=== PATIENT | female | born 1935 | race Caucasian/White ===

== ENCOUNTER → 2016-05-28 | Outpatient (CLI) | payer OTHER ==
[~2016-05-28] MED LIST: ATEN25TA PO; ATOR40TA PO; METF500T PO; MYRB25TA PO; PAXI20TA3 PO; VAGI10TA VA
--- NOTE | 2016-05-28 11:41 | REP ---
CHEST, TWO VIEWS: HISTORY: Dyspnea. COMPARISON: 05/18/2015. Linear density is present in the left lower lobe consistent with scar. The right lung is clear. The heart is normal in size. The pulmonary vasculature is normal in appearance. Degenerative change is present in the thoracic spine. IMPRESSION: Left lower lobe scar. Signed by Aaron Damon MD 05/28/2016 11:44 A
== END ==
LOC: M LRY 10:58 → M WUC 10:58
PROVIDERS: ATTEND Internal Medicine
DX: J98.4 Other disorders of lung (principal); R06.00 Dyspnea, unspecified

== ENCOUNTER 2017-05-09 14:19 | Emergency (ER) | payer OTHER ==
[2017-05-09 15:02] LABS: BASO # 0.1 10^3/uL (0.0-0.2); EOS # 0.4 10^3/uL (0.0-0.50); EOS % 5.7 % (0.0-3.0); HEMATOCRIT 39.9 % (36.0-47.0); HEMOGLOBIN 13.1 g/dl (12.0-16.0); IMMATURE GRANULOCYTE % 0.6 % (0-0); LYMPH # 1.6 10^3/uL (1.5-4.5); LYMPH % 21.8 % (24.0-44.0); MEAN CORPUSCULAR HEMOGLOBIN 32.5 pg (27.0-33.0); MEAN CORPUSCULAR HGB CONC 32.8 g/dl (32.0-36.5); MONO # 0.6 10^3/uL (0.0-0.8); NEUTROPHILS # 4.5 10^3/uL (1.8-7.7); NEUTROPHILS % 62.9 % (36.0-66.0); PLATELET COUNT, AUTOMATED 247 10^3/uL (150-450); RED BLOOD COUNT 4.03 10^6/uL (4.00-5.40); RED CELL DISTRIBUTION WIDTH 13.5 % (11.5-14.5); WHITE BLOOD COUNT 7.2 10^3/uL (4.0-10.0)
[2017-05-09 15:35] LABS: INFLUENZA A AMPLIFICATION NEGATIVE (NEGATIVE); INFLUENZA B AMPLIFICATION NEGATIVE (NEGATIVE)
[2017-05-09 15:42] LABS: ALBUMIN 3.6 GM/DL (3.2-5.2); ALBUMIN/GLOBULIN RATIO 0.97 (1.00-1.93); ALKALINE PHOSPHATASE 60 U/L (45-117); ALT/SGPT 25 U/L (12-78); ANION GAP 9 MEQ/L (8-16); AST/SGOT 17 U/L (7-37); BILIRUBIN,DIRECT 0.1 MG/DL (0.0-0.2); BILIRUBIN,TOTAL 0.5 MG/DL (0.2-1.0); BLOOD UREA NITROGEN 13 MG/DL (7-18); CALCIUM LEVEL 8.6 MG/DL (8.8-10.2); CARBON DIOXIDE LEVEL 25 MEQ/L (21-32); CHLORIDE LEVEL 104 MEQ/L (98-107); CPK CREATINE PHOSPHOKINASE 66 U/L (26-192); CREATININE FOR GFR 0.81 MG/DL (0.55-1.02); FREE T4 0.88 NG/DL (0.76-1.46); GLOMERULAR FILTRATION RATE > 60.0 (>32); GLUCOSE, FASTING 153 MG/DL (70-100); POTASSIUM SERUM 4.5 MEQ/L (3.5-5.1); SODIUM LEVEL 138 MEQ/L (136-145); TOTAL PROTEIN 7.3 GM/DL (6.4-8.2); TROPONIN I < 0.02 NG/ML (< 0.10)
[2017-05-09 15:47] LABS: INR 1.03; PROTHROMBIN TIME 13.6 SECONDS (12.4-14.5)
[2017-05-09 15:48] LABS: CK-MB VALUE MASS 1.9 NG/ML (0.0-3.6); MB/CK RELATIVE INDEX 2.87 (< OR =4); NT-PRO BNP 188 PG/ML (<450); PARTIAL THROMBOPLASTIN TIME 23.8 SECONDS (26.8-37.9)
== END 2017-05-09 17:17 | disposition home or self-care (01) ==
LOC: M ED 14:19
DX: R06.02 Shortness of breath (principal); R05 Cough; I12.9 Hypertensive chronic kidney disease with stage 1 through stage 4 chronic kidney disease, or unspecified chronic kidney disease; E11.9 Type 2 diabetes mellitus without complications; J45.909 Unspecified asthma, uncomplicated; N18.9 Chronic kidney disease, unspecified; E78.5 Hyperlipidemia, unspecified; I71.4 Abdominal aortic aneurysm, without rupture; K22.70 Barrett's esophagus without dysplasia; Z79.899 Other long term (current) drug therapy; Z79.84 Long term (current) use of oral hypoglycemic drugs; Z87.891 Personal history of nicotine dependence
CPT/HCPCS: 71046

== ENCOUNTER → 2017-08-02 | Outpatient (CLI) | payer OTHER ==
[2017-08-02 17:50] LABS: BASO # 0.1 10^3/uL (0.0-0.2); BASO % 0.6 % (0.0-1.0); EOS # 0.3 10^3/uL (0.0-0.50); EOS % 3.1 % (0.0-3.0); HEMATOCRIT 43.3 % (36.0-47.0); HEMOGLOBIN 14.2 g/dl (12.0-15.5); IMMATURE GRANULOCYTE % 0.5 % (0-3.0); LYMPH % 9.2 % (24.0-44.0); MEAN CORPUSCULAR HEMOGLOBIN 32.3 pg (27.0-33.0); MEAN CORPUSCULAR HGB CONC 32.8 g/dl (32.0-36.5); MEAN CORPUSCULAR VOLUME 98.4 fl (80.0-96.0); MONO # 0.8 10^3/uL (0.0-0.8); MONO % 7.5 % (0.0-5.0); NEUTROPHILS # 8.2 10^3/uL (1.8-7.7); NEUTROPHILS % 79.1 % (36.0-66.0); PLATELET COUNT, AUTOMATED 260 10^3/uL (150-450); RED CELL DISTRIBUTION WIDTH 13.7 % (11.5-14.5); WHITE BLOOD COUNT 10.4 10^3/uL (4.0-10.0)
[2017-08-02 17:54] LABS: ALBUMIN 3.8 GM/DL (3.2-5.2); ALBUMIN/GLOBULIN RATIO 0.95 (1.00-1.93); ALKALINE PHOSPHATASE 68 U/L (45-117); ALT/SGPT 21 U/L (12-78); ANION GAP 10 MEQ/L (8-16); AST/SGOT 25 U/L (7-37); BILIRUBIN,TOTAL 1.3 MG/DL (0.2-1.0); BLOOD UREA NITROGEN 14 MG/DL (7-18); CALCIUM LEVEL 9.1 MG/DL (8.8-10.2); CARBON DIOXIDE LEVEL 27 MEQ/L (21-32); CHLORIDE LEVEL 101 MEQ/L (98-107); CREATININE FOR GFR 1.03 MG/DL (0.55-1.30); GLOMERULAR FILTRATION RATE 54.6 (>32); GLUCOSE, FASTING 159 MG/DL (70-100); POTASSIUM SERUM 4.6 MEQ/L (3.5-5.1); SODIUM LEVEL 138 MEQ/L (136-145); TOTAL PROTEIN 7.8 GM/DL (6.4-8.2)
== END ==
LOC: M WUC 12:48
DX: R05 Cough (principal); R11.2 Nausea with vomiting, unspecified; K44.9 Diaphragmatic hernia without obstruction or gangrene
CPT/HCPCS: 80053

== ENCOUNTER → 2017-10-13 | Outpatient (CLI) | payer OTHER | LOC: M PT 10:20 | DX: E11.42 Type 2 diabetes mellitus with diabetic polyneuropathy (principal); R26.89 Other abnormalities of gait and mobility | CPT/HCPCS: 97162 ==

== ENCOUNTER → 2018-02-25 | Outpatient (CLI) | payer OTHER ==
[2018-02-25 20:10] LABS: BASO # 0.1 10^3/uL (0.0-0.2); EOS # 0.7 10^3/uL (0.0-0.50); EOS % 7.6 % (0.0-3.0); HEMATOCRIT 41.5 % (36.0-47.0); HEMOGLOBIN 12.9 g/dl (12.0-15.5); IMMATURE GRANULOCYTE % 0.6 % (0-3.0); LYMPH # 2.8 10^3/uL (1.5-4.5); LYMPH % 32.2 % (24.0-44.0); MEAN CORPUSCULAR HEMOGLOBIN 31.4 pg (27.0-33.0); MEAN CORPUSCULAR HGB CONC 31.1 g/dl (32.0-36.5); MONO # 0.7 10^3/uL (0.0-0.8); MONO % 7.8 % (0.0-5.0); NEUTROPHILS # 4.4 10^3/uL (1.8-7.7); NEUTROPHILS % 50.8 % (36.0-66.0); PLATELET COUNT, AUTOMATED 274 10^3/uL (150-450); RED BLOOD COUNT 4.11 10^6/uL (4.00-5.40); RED CELL DISTRIBUTION WIDTH 13.8 % (11.5-14.5); WHITE BLOOD COUNT 8.6 10^3/uL (4.0-10.0)
[2018-02-25 20:33] LABS: ALBUMIN/GLOBULIN RATIO 1.21 (1.00-1.93); ALKALINE PHOSPHATASE 65 U/L (45-117); ALT/SGPT 23 U/L (12-78); ANION GAP 6 MEQ/L (8-16); AST/SGOT 22 U/L (7-37); BILIRUBIN,TOTAL 0.7 MG/DL (0.2-1.0); BLOOD UREA NITROGEN 19 MG/DL (7-18); CARBON DIOXIDE LEVEL 28 MEQ/L (21-32); CHLORIDE LEVEL 104 MEQ/L (98-107); CREATININE FOR GFR 0.96 MG/DL (0.55-1.30); FREE T4 0.99 NG/DL (0.76-1.46); GLOMERULAR FILTRATION RATE 59.1 (>32); GLUCOSE, FASTING 99 MG/DL (70-100); POTASSIUM SERUM 4.5 MEQ/L (3.5-5.1); SODIUM LEVEL 138 MEQ/L (136-145); TOTAL PROTEIN 7.3 GM/DL (6.4-8.2)
== END ==
LOC: M WUC 15:38
DX: R10.30 Lower abdominal pain, unspecified (principal)
CPT/HCPCS: 84443

== ENCOUNTER 2018-07-27 15:05 | Inpatient (IN) | payer MEDICARE, OTHER ==
[~2018-07-27] VITALS: Ht 162.6 cm; Wt 72.9 kg
[~2018-07-27 15:05] MED LIST changes: +ALBU83IN INH; -ATOR40TA PO; +ATOR40TA75 PO; +FERR325T3 PO; +LISI-1046 PO; -METF500T PO; +METF500T13 PO; +OMEP20CA3 PO; +PAXI20TA29 PO; -PAXI20TA3 PO
[2018-07-27] MEDS ORDERED: SYMB80INH INH (15:56)
[2018-07-27] MEDS ORDERED: ASPI81TA85 PO (16:00)
[2018-07-27] MEDS ORDERED: NS 500 ML IV ONE (16:15)
--- NOTE | 2018-07-27 16:34 | REP ---
Chest one-view HISTORY: Vaginal bleeding Comparison: 08/02/2017 Linear densities are present in the left lower lobe consistent with scar. The right lung is clear. The heart is normal in size. The pulmonary vasculature is normal in appearance. Impression: No acute disease. Electronically Signed by Aaron Damon MD 07/27/2018 04:25 P
[2018-07-27] MEDS ORDERED: LIDOCAINE 2% 5ML JELLY UROJET TOP ONE (16:45)
[2018-07-27 17:05] LABS: BASO # 0.1 10^3/uL (0.0-0.2); BASO % 0.7 % (0.0-1.0); EOS # 0.6 10^3/uL (0.0-0.50); EOS % 6.6 % (0.0-3.0); HEMATOCRIT 31.1 % (36.0-47.0); HEMOGLOBIN 9.6 g/dl (12.0-15.5); LYMPH # 1.9 10^3/uL (1.5-4.5); LYMPH % 21.1 % (24.0-44.0); MEAN CORPUSCULAR HEMOGLOBIN 29.9 pg (27.0-33.0); MEAN CORPUSCULAR HGB CONC 30.9 g/dl (32.0-36.5); MEAN CORPUSCULAR VOLUME 96.9 fl (80.0-96.0); MONO # 0.7 10^3/uL (0.0-0.8); MONO % 7.4 % (0.0-5.0); NEUTROPHILS # 5.9 10^3/uL (1.8-7.7); NEUTROPHILS % 63.8 % (36.0-66.0); PLATELET COUNT, AUTOMATED 252 10^3/uL (150-450); RED BLOOD COUNT 3.21 10^6/uL (4.00-5.40); WHITE BLOOD COUNT 9.2 10^3/uL (4.0-10.0)
[2018-07-27 17:27] LABS: ALBUMIN 3.8 GM/DL (3.2-5.2); ALT/SGPT 18 U/L (12-78); BILIRUBIN,DIRECT 0.1 MG/DL (0.0-0.2); BILIRUBIN,TOTAL 0.6 MG/DL (0.2-1.0); BLOOD UREA NITROGEN 31 MG/DL (7-18); CALCIUM LEVEL 8.5 MG/DL (8.8-10.2); CARBON DIOXIDE LEVEL 25 MEQ/L (21-32); CHLORIDE LEVEL 104 MEQ/L (98-107); CPK CREATINE PHOSPHOKINASE 62 U/L (26-192); CREATININE FOR GFR 1.41 MG/DL (0.55-1.30); GLOMERULAR FILTRATION RATE 37.9 (>32); GLUCOSE, FASTING 122 MG/DL (70-100); LIPASE 131 U/L (73-393); MB/CK RELATIVE INDEX 2.74 (< OR =4); POTASSIUM SERUM 4.6 MEQ/L (3.5-5.1); SODIUM LEVEL 137 MEQ/L (136-145); TOTAL PROTEIN 7.2 GM/DL (6.4-8.2); TROPONIN I < 0.02 NG/ML (< 0.10)
[2018-07-27 17:36] LABS: GLUCOSE, URINE (UA) MANUAL NEGATIVE (NEGATIVE); KETONE, URINE MANUAL NEGATIVE (NEGATIVE)
[2018-07-27 17:37] LABS: BILIRUBIN, URINE MANUAL NEGATIVE (NEGATIVE); UROBILINOGEN, URINE MANUAL NORMAL (NORMAL)
[2018-07-27 17:42] LABS: RBC, URINE TNTC /hpf (0-3); SQUAMOUS EPITHELIAL CELL URINE NONE SEEN /hpf (SMALL AMT)
[2018-07-27 17:43] LABS: BACTERIA, URINE MOD AMOUNT; HYALINE CAST, URINE NONE SEEN /lpf (0-1)
[2018-07-27] MEDS ORDERED: ISOVUE-370 76% 100ML VIAL (Q9967) As Ordered ONE (18:00)
[2018-07-27 18:27] LABS: INR 0.98; PROTHROMBIN TIME 13.1 SECONDS (12.1-14.4)
[2018-07-27 18:28] LABS: PARTIAL THROMBOPLASTIN TIME 23.6 SECONDS (25.4-37.6)
[2018-07-27] MEDS ORDERED: ATOR1TAB21 PO (18:29)
[2018-07-27] MEDS ORDERED: METF750T PO (18:29)
[2018-07-27] MEDS ORDERED: SYMB16INH INH (18:29)
[2018-07-27] MEDS ORDERED: PARO40TA2 PO (18:29)
--- NOTE | 2018-07-27 19:21 | REPVR ---
EXAM: CT Abdomen and Pelvis Without and With Contrast EXAM DATE/TIME: 07/27/2018 6:14 PM CLINICAL HISTORY: 82 years old, female; Signs and symptoms; Other: Hematuria; Prior surgery; Surgery date: 6+ months; Surgery type: Aaa, , hernia; Additional info: Hematuria - RO stone/mass; Aaa w stent, rectal bld, hematuri TECHNIQUE: Imaging protocol: Axial computed tomography images of the abdomen and pelvis without and with intravenous contrast. Coronal and sagittal reformatted images were created and reviewed. Radiation optimization: All CT scans at this facility use at least one of these dose optimization techniques: automated exposure control; mA and/or kV adjustment per patient size (includes targeted exams where dose is matched to clinical indication); or iterative reconstruction. Contrast material: isovue 360 Contrast volume: 100 ml Contrast route: iv COMPARISON: CT ABD PELVIS WITH CONTRAST 04/27/2014 10:07 AM FINDINGS: Lower thorax: Bronchiectasis medial basilar segment right lower lobe. Small sliding hiatal hernia. ABDOMEN: Liver: Hepatic cyst caudate lobe measures 2.5 centimeters. Small benign lucency demonstrated inferiorly in the right lobe. The liver is otherwise unremarkable. Gallbladder and bile ducts: Normal. No calcified stones. No ductal dilation. Pancreas: Normal. No ductal dilation. Spleen: Normal. No splenomegaly. Adrenals: Normal. No mass. Kidneys and ureters: Lower pole cyst right kidney measures 1.8 centimeters. Mild hydroureteronephrosis on the right to the UV junction. Stomach and bowel: Normal. No obstruction. No mucosal thickening. Appendix: No evidence of appendicitis. PELVIS: Bladder: Large irregular bladder mass measures 5 x 3.7 x 3.2 centimeters. 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 Small bladder diverticulum on the right. Reproductive: Unremarkable as visualized. ABDOMEN and PELVIS: Intraperitoneal space: Normal. No free air. No significant fluid collection. Bones/joints: Moderate to severe central spinal stenosis at L3-4, L4-5. The spine demonstrates moderate degenerative changes. Soft tissues: Unremarkable. Vasculature: Status post placement of a bifurcating endograft in the abdominal aorta. The proximal and distal anastomoses appear unremarkable. No evidence of an endograft leak arterial phase or delayed postcontrast imaging. [place] abdominal aortic aneurysm measures 5.3 x 4.5 centimeters maximally. Lymph nodes: Normal. No enlarged lymph nodes. Other findings: Osteoporosis. IMPRESSION: 1. Status post placement of a bifurcating endograft in the abdominal aorta. The proximal and distal anastomoses appear unremarkable. No evidence of an endograft leak. [place] abdominal aortic aneurysm measures 5.3 x 4.5 centimeters maximally. 2. Mild hydroureteronephrosis on the right to the UV junction. 3. Large irregular bladder mass measures 5 x 3.7 x 3.2 centimeters. 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 Electronically signed by: Emmanuel Weesm On 07/27/2018 19:20:57 PM
[2018-07-27] MEDS ORDERED: LORazepam 2 MG/ML VIAL (J2060) IV STA ×2 (20:49→22:07)
--- NOTE | 2018-07-27 21:44 | ECGEPIP ---
Stationary ECG Study 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
[2018-07-27] MEDS ORDERED: GLUCOSE 4 GM CHEW TABLET PO PRN (23:15)
[2018-07-27] MEDS ORDERED: GLUCAGON FOR INJ 1 MG VIAL (J1610) SC PRN (23:15)
[2018-07-27] MEDS ORDERED: ALBUTEROL 90 MCG/ACT 8GM HFA INHALER INH PRN (23:15)
[2018-07-27] MEDS ORDERED: DEXTROSE 50% 50 ML SYRINGE IV PRN (23:15)
[2018-07-27] MEDS ORDERED: PIPERACILLIN/TAZOBACTAM SOD 3.375 GM in D5W MINI-BAG PLUS 50 ML IV ONE (23:15)
--- NOTE | 2018-07-27 23:28 | HPEPDOC ---
General Date of Admission Jul 27, 2018 at 23:10 Chief Complaint The patient is a 82-year-old female admitted with a reason for visit of Hematur ia. History of Present Illness 82-year-old female with past medical history of hypertension, dyslipidemia, diabetes mellitus, asthma, abdominal aortic aneurysm status post graft placement in 2014, GERD, and anxiety presents to the ER with chief complaint of blood in the urine for the past 4 days. The patient states that this started Thursday afternoon, when she noticed bright red blood in her urine. She states that her urine was intermittently bloody over the weekend, but has remained bright red over the last 2 days. The patient also endorses a 30 pound non-intentional weight loss over the last 18 months. She states that she has felt generally fatigued during this time. The patient denies any similar episodes of hematuria in the past. However, it appears that the patient does have a history of microscopic hematuria, and she was evaluated by urology in December 2015 and there was a plan for cystoscopy. The patient does not remember this, and states that she has not had a cystoscopy done before. At this time, the patient denies any complaints of fevers, chills, chest pain, palpitations, shortness of breath, abdominal pain, or any nausea/vomiting/diarrhea. In the ER, the patient's hemoglobin was noted to be 9.6, down from her baseline of 12.9 from [address] scan of the abdomen/pelvis revealed a large irregular bladder mass consistent with a primary bladder tumor. Urology was contacted by the ER, and will see the patient in the AM. The patient will be admitted to the hospitalist service for further evaluation and management. Home Medications Scheduled Aspirin (Aspir 81) 81 Mg Tablet.dr, 81 MG PO DAILY, (Reported) Atorvastatin Calcium (Atorvastatin Calcium) 20 Mg Tablet, 20 MG PO QHS, (Reported) Budesonide/Formoterol (Symbicort 160-4.5 Mcg Inhaler) 6 Gm Hfa.aer.ad, 2 PUFF INH BID, (Reported) Lisinopril (Lisinopril) 2.5 Mg Tab, 2.5 MG PO DAILY, (Reported) Metformin HCl (Metformin HCl ER) 750 Mg Tab.er.24h, 1,500 MG PO QPM, (Reported) Omeprazole (Omeprazole) 20 Mg Cap, 20 MG PO DAILY, (Reported) Paroxetine HCl (Paroxetine HCl) 40 Mg Tablet, 40 MG PO QHS, (Reported) Scheduled PRN Albuterol Sulf (Albuterol Sulfate) 2.5 Mg/3 Ml Nebu, 1 VIAL INH QID PRN for SHOR TNESS OF BREATH, (Reported) Allergies Coded Allergies: No Known Allergies (Unverified , 05/09/17) Past Medical History Medical History As noted in HPI. Surgical History Carpal tunnel release bilaterally, cataract surgery bilaterally, 3, abdominal aortic aneurysm repair with grafting in 2015 Social History * Smoker: former Smoker (patient smoked a few cigarettes daily for 1 year in her teens remotely.) Alcohol: Denies Drugs: denies Review of Systems Other systems 10 point review of systems negative unless otherwise specified in HPI. Physical Examination General Exam: Positive: Alert, Cooperative, No Acute Distress ENT Exam: Positive: Atraumatic, Mucous membr. moist/pink Chest Exam: Positive: Clear to auscultation, Normal air movement Heart Exam: Positive: Rate Normal, Normal S1, Normal S2 Abdomen Exam: Positive: Soft; Negative: Tenderness Extremity Exam: Negative: Tenderness, Swelling Psych Exam: Positive: Oriented x 3 Vital Signs Vital Signs Date Time Temp Pulse Resp B/P (MAP) Pulse Ox O2 Delivery O2 Flow Rate FiO2 07/27/18 22:21 86 16 159/88 (111) 97 Room Air 07/27/18 15:05 96.2 Laboratory Data Labs 24H Laboratory Tests 2 07/27/18 15:46: Immature Granulocyte % (Auto) 0.4, White Blood Count 9.2, Red Blood Count 3.21L, Hemoglobin 9.6L, Hematocrit 31.1L, Mean Corpuscular Volume 96.9H, Mean Corpuscular Hemoglobin 29.9, Mean Corpuscular Hemoglobin Concent 30.9L, Red Cell Distribution Width 14.1, Platelet Count 252, Neutrophils (%) (Auto) 63.8, Lymphocytes (%) (Auto) 21.1L, Monocytes (%) (Auto) 7.4H, Eosinophils (%) (Auto) 6.6H, Basophils (%) (Auto) 0.7, Neutrophils # (Auto) 5.9, Lymphocytes # (Auto) 1.9, Monocytes # (Auto) 0.7, Eosinophils # (Auto) 0.6H, Basophils # (Auto) 0.1, Nucleated Red Blood Cells % (auto) 0.0, Urine Color (BRAYAN) REDH, Urine Appearance (BRAYAN) TURBIDH, Urine pH (BRAYAN) 8.0, Urine Specific [place] (BRAYAN) 1.010, Urine Protein 3+H, Bedside Urine Glucose (UA) NEGATIVE, Bedside Urine Ketones (LAB) NEGATIVE, Bedside Urine Blood POSITIVEH, Bedside Urine Nitrite (LAB) POSITIVEH, Bedside Urine Bilirubin (LAB) NEGATIVE, Bedside Urine Urobilinogen (LAB) NORMAL, Bedside Urine Leukocyte Esterase (L TRACEH, Urine Sediment Examination PERFORMED, Urine RBC TNTCH, Urine WBC 3-5H, Urine Squamous Epithelial Cells NONE SEEN, Urine Bacteria MOD AMOUNTH, Urine Hyaline Casts NONE SEEN, Anion Gap 8, Glomerular Filtration Rate 37.9, Lactic Acid Level 2.5*H, Calcium Level 8.5L, Aspartate Amino Transf (AST/SGOT) 19, Alanine Aminotransferase (ALT/SGPT) 18, Alkaline Phosphatase 62, Total Bilirubin 0.6, Direct Bilirubin 0.1, Total Creatine Kinase 62, Creatine Kinase MB 2.0, Creatine Kinase MB Relative Index 2.74, Troponin I < 0.02, Total Protein 7.2, Albumin 3.8, Albumin/Globulin Ratio 1.12, Lipase 131 07/27/18 16:40: Prothrombin Time 13.1, Prothromb Time International Ratio 0.98, Activated Partial Thromboplast Time 23.6L CBC/BMP Laboratory Tests 07/27/18 15:46 Red Blood Count 3.21 L, Mean Corpuscular Volume 96.9 H, Mean Corpuscular Hemoglobin 29.9, Mean Corpuscular Hemoglobin Concent 30.9 L, Red Cell Distribution Width 14.1, Neutrophils (%) (Auto) 63.8, Lymphocytes (%) (Auto) 21.1 L, Monocytes (%) (Auto) 7.4 H, Eosinophils (%) (Auto) 6.6 H, Basophils (%) (Auto) 0.7, Neutrophils # (Auto) 5.9, Lymphocytes # (Auto) 1.9, Monocytes # (Auto) 0.7, Eosinophils # (Auto) 0.6 H, Basophils # (Auto) 0.1 Microbiology Microbiology 07/27/18 Urine Culture, Received Pending Plan / VTE VTE Prophylaxis Ordered?: Yes Plan Plan Hematuria 2/[address] Abd/Pel notable for large irregular bladder mass measuring 5 x 3.7 x 3.2 cm consistent with a primary bladder tumor. Urology contacted in the ER-->Schneider Catheter was CBI initiated, Urine Culture ordered Patient empirically started on Zosyn We will keep the patient NPO The possibility of malignancy discussed with the patient and her daughters at the bedside We will f/u with Urology recommendations in the AM DEBBIE 2/2 Above IVF Hydration ordered Mild [place] noted at the UV junction of CT Abd/Pel Urology on board Will f/u with BMP in the AM Lactic Acidosis 2/2 Above IVF hydration ordered We will f/u with a LA level Acute Blood Loss Anemia 2/2 Above Hgb noted to be 9.6 in the ER (Baseline closer to 12 in 02/2018)--no indication for transfusion at this time We will repeat labs in the AM GERD Cont PPI Asthma, stable Cont inhaler therapy as ordered Dyslipidemia Cont Statin Anxiety/Depression Cont Paroxetine Hx of AAA s/p Graft placement in [address] Abd/pel findings Diabetes Mellitus Metformin held ISS for coverage DVT Prophylaxis SCDs/TEDs (Will hold AC 2/2 Hematuria) Full Code DK SAEZ MD Jul 27, 2018 23:28
[2018-07-28] MEDS: NS 1,400 ML IV SCH ×2 (01:44→17:58)
[2018-07-28] MEDS: HumaLOG INSULIN (NovoLOG) PER UNIT SC SCH ×5 (06:00→20:42)
[2018-07-28 06:57] LABS: HEMATOCRIT 27.9 % (36.0-47.0); HEMOGLOBIN 8.5 g/dl (12.0-15.5); MEAN CORPUSCULAR HEMOGLOBIN 29.8 pg (27.0-33.0); MEAN CORPUSCULAR HGB CONC 30.5 g/dl (32.0-36.5); MEAN CORPUSCULAR VOLUME 97.9 fl (80.0-96.0); PLATELET COUNT, AUTOMATED 210 10^3/uL (150-450); RED BLOOD COUNT 2.85 10^6/uL (4.00-5.40); WHITE BLOOD COUNT 8.5 10^3/uL (4.0-10.0)
[2018-07-28 07:16] LABS: CALCIUM LEVEL 7.9 MG/DL (8.8-10.2); CREATININE FOR GFR 1.22 MG/DL (0.55-1.30); GLOMERULAR FILTRATION RATE 44.8 (>32); MAGNESIUM LEVEL 2.7 MG/DL (1.8-2.4); POTASSIUM SERUM 4.6 MEQ/L (3.5-5.1)
[2018-07-28] MEDS: SYMBICORT 160/4.5MCG INHALER 6GM INH SCH ×2 (07:27→20:44)
[2018-07-28] MEDS: PIPERACILLIN/TAZOBACTAM SOD 2.25 GM in D5W MINI-BAG PLUS 50 ML IV SCH ×3 (09:06→17:47)
[2018-07-28 11:53] VITALS: BP 125/70
[2018-07-28] MEDS: ACETAMINOPHEN TAB 650MG DOSE (2X325MG) PO PRN ×2 (12:51→20:29)
[2018-07-28] MEDS: OMEPRAZOLE 20 MG CAP PO SCH (12:51)
--- NOTE | 2018-07-28 13:10 | IPNPDOC ---
Date Seen The patient was seen on 07/28/18. Progress Note SUBJECTIVE: 82-year-old female with past medical history of hypertension, diabetes, asthma, AAA status post graft placement 2014 presented with 4 days of hematuria found to have large bladder mass on CT abdomen and pelvis. Interval history: Patient reported feeling fine without any significant complaints. Urine remains red on CBI. Hb dropped from 9.6 last night to 8.5 this AM. OBJECTIVE PHYSICAL EXAMINATION: VITAL SIGNS: Please see below. General: No acute distress, Alert Eyes: Normal sclera, EOMI, MIRNA HENT: Atraumatic, neck supple, moist mucous membranes Cardiovascular: Normal rate, normal rhythm. No murmurs appreciated. Pulmonary: Clear to auscultation b/l, no wheezing GI: Soft, nontender, nondistended Skin: Warm and dry Neuro: CN grossly intact. No focal deficits. Strengths equal b/l. Psych: oriented x 3 LABORATORY DATA, IMAGING STUDIES, MICROBIOLOGY: Please see below. DVT prophylaxis ordered?: DM ASSESSMENT AND PLAN: 1. Hematuria 2/2 Bladder tumor vs. UTI - CT Abd/Pelvis noted 5x3.7x3.2 cm irregular bladder mass. - Patient on CBI. - Monitor H/H. No significant anemic symptoms. - Type and screen. Transfuse if needed. - Urology following. If bleeding stops and patient improves, possibly can be discharge for outpatient surgery. - If bleeding persist or condition worsens, may need to undergo scope/surgical intervention (possibly thursday?). - If patient requires surgical intervention, will try to tranfuse to bring Hb >9-10 for optimization. - Continue monitor H/H. - On Zosyn for UTI. f/u urine culture. 2. DEBBIE - IVF hydration. - mild hydronephrosis noted on CT abdomen. - Urology following. 3. Asthma - Nebs PRN. stable. 4. HLD - c/w home meds. 5. HX AAA graft placement 2014 - Stable based on CT findings. 6. DM - ISS. Hold metformin. Full code DISPOSITION: Home when stable. VS, I&O, 24H, Fishbone Vital Signs/I&O Vital Signs Date Time Temp Pulse Resp B/P (MAP) Pulse Ox O2 Delivery O2 Flow Rate FiO2 07/28/18 11:53 97.0 82 18 125/70 (88) 97 07/28/18 11:28 Room Air I&O- Last 24 Hours up to 6 AM 07/28/18 06:00 Intake Total 6500 ml Output Total 5950 ml Balance 550 ml Laboratory Data 24H LABS Laboratory Tests 2 07/27/18 15:46: Immature Granulocyte % (Auto) 0.4, White Blood Count 9.2, Red Blood Count 3.21L, Hemoglobin 9.6L, Hematocrit 31.1L, Mean Corpuscular Volume 96.9H, Mean Corpuscular Hemoglobin 29.9, Mean Corpuscular Hemoglobin Concent 30.9L, Red Cell Distribution Width 14.1, Platelet Count 252, Neutrophils (%) (Auto) 63.8, Lymphocytes (%) (Auto) 21.1L, Monocytes (%) (Auto) 7.4H, Eosinophils (%) (Auto) 6.6H, Basophils (%) (Auto) 0.7, Neutrophils # (Auto) 5.9, Lymphocytes # (Auto) 1.9, Monocytes # (Auto) 0.7, Eosinophils # (Auto) 0.6H, Basophils # (Auto) 0.1, Nucleated Red Blood Cells % (auto) 0.0, Urine Color (BRAYAN) REDH, Urine Appearance (BRAYAN) TURBIDH, Urine pH (BRAYAN) 8.0, Urine Specific [place] (BRAYAN) 1.010, Urine Protein 3+H, Bedside Urine Glucose (UA) NEGATIVE, Bedside Urine Ketones (LAB) NEGATIVE, Bedside Urine Blood POSITIVEH, Bedside Urine Nitrite (LAB) POSITIVEH, Bedside Urine Bilirubin (LAB) NEGATIVE, Bedside Urine Urobilinogen (LAB) NORMAL, Bedside Urine Leukocyte Esterase (L TRACEH, Urine Sediment Examination PERFORMED, Urine RBC TNTCH, Urine WBC 3-5H, Urine Squamous Epithelial Cells NONE SEEN, Urine Bacteria MOD AMOUNTH, Urine Hyaline Casts NONE SEEN, Anion Gap 8, Glomerular Filtration Rate 37.9, Lactic Acid Level 2.5*H, Calcium Level 8.5L, Aspartate Amino Transf (AST/SGOT) 19, Alanine Aminotransferase (ALT/SGPT) 18, Alkaline Phosphatase 62, Total Bilirubin 0.6, Direct Bilirubin 0.1, Total Creatine Kinase 62, Creatine Kinase MB 2.0, Creatine Kinase MB Relative Index 2.74, Troponin I < 0.02, Total Protein 7.2, Albumin 3.8, Albumin/Globulin Ratio 1.12, Lipase 131 07/27/18 16:40: Prothrombin Time 13.1, Prothromb Time International Ratio 0.98, Activated Partial Thromboplast Time 23.6L 07/28/18 06:42: Nucleated Red Blood Cells % (auto) 0.0, Anion Gap 6L, Glomerular Filtration Rate 44.8, Calcium Level 7.9L, Blood Urea Nitrogen 22H, Creatinine 1.22, Sodium Level 140, Potassium Level 4.6, Chloride Level 109H, Carbon Dioxide Level 25, Magnesium Level 2.7H 07/28/18 07:55: Bedside Glucose (Misc Panel) 103 07/28/18 12:15: Bedside Glucose (Misc Panel) 107 CBC/BMP Laboratory Tests 07/27/18 15:46 Red Blood Count 3.21 L, Mean Corpuscular Volume 96.9 H, Mean Corpuscular Hemoglobin 29.9, Mean Corpuscular Hemoglobin Concent 30.9 L, Red Cell Distribution Width 14.1, Neutrophils (%) (Auto) 63.8, Lymphocytes (%) (Auto) 21.1 L, Monocytes (%) (Auto) 7.4 H, Eosinophils (%) (Auto) 6.6 H, Basophils (%) (Auto) 0.7, Neutrophils # (Auto) 5.9, Lymphocytes # (Auto) 1.9, Monocytes # (Auto) 0.7, Eosinophils # (Auto) 0.6 H, Basophils # (Auto) 0.1 07/28/18 06:42 Red Blood Count 2.85 L, Mean Corpuscular Volume 97.9 H, Mean Corpuscular Hemoglobin 29.8, Mean Corpuscular Hemoglobin Concent 30.5 L, Red Cell Distribution Width 14.3, Calcium Level 7.9 L Microbiology Microbiology 07/27/18 Urine Culture, Received Pending ABELARDO GARNETT MD Jul 28, 2018 13:10
--- NOTE | 2018-07-28 13:26 | SMCUROLCON ---
Urology Consultation General Date of Consultation 07/28/18 Reason For Consultation This patient is seen for Hematuria. History of Present Illness This is an 82 y/o F w/ a PMH significant for a AAA (s/p endovascular stent placement in 2016), CVD, CHF, HL, HTN, and DM2, who presented to the hospital w/ hematuria x 4 days. In addition to hematuria, she has had dysuria and lower abd pain. A CT A/P obtained in the ER was notable for a possible 5cm bladder mass as well as mild right hydroureteronephrosis down to the level of the bladder. The patient has no hx of bladder cancer. She smoked a small amount when she was very young and denies being exposed to much second hand smoke. She denies fevers or chills, but feels weak. She denies flank pain. Past Medical History Medical History see HPI Surgical Hstory endovascular stent for AAA, cataract surgery, C section Medications Current Medications Current Medications Acetaminophen (Tylenol Tab) 650 mg Q8HP PRN PO PAIN / FEVER Last administered on 07/28/18at 12:51; Start 07/28/18 at 12:30 Albuterol Sulfate (Proventil, Ventolin Hfa) 2 puff Q4HP PRN INH SHORTNESS OF BREATH; Start 07/27/18 at 23:15 Atorvastatin Calcium (Lipitor) 20 mg QHS PO ; Start 07/28/18 at 21:00 Budesonide/ Formoterol Fumarate (Symbicort 160/ 4.5mcg) 2 puff BID INH Last administered on 07/28/18at 07:27; Start 07/28/18 at 09:00 Dextrose (Dextrose 50%) 25 ml ASDIRECTED PRN IV SEE LABEL COMMENTS; Start 07/27/18 at 23:15 Glucagon (Glucagon) 1 mg ASDIRECTED PRN SC SEE LABEL COMMENTS; Start 07/27/18 at 23:15 Glucose (Glucose) 16 GM ASDIRECTED PRN PO SEE LABEL COMMENTS; Start 07/27/18 at 23:15 Home Med (Med Rec Complete!) ASDIRECTED XX ; Start 07/27/18 at 18:30; Stop 07/27/18 at 18:34; Status DC Insulin Human Lispro (HumaLOG INSULIN) SEE PROTOCOL TABLE Q6H SC ; Start 07/28/18 at 00:00; Stop 07/28/18 at 12:19; Status DC Insulin Human Lispro (HumaLOG INSULIN) See Protocol Table AC SC Last administered on 07/28/18at 12:52; Start 07/28/18 at 12:00 Insulin Human Lispro (HumaLOG INSULIN) See Protocol Table QHS SC ; Start 07/28/18 at 21:00 Lorazepam (Ativan) 0.5 mg STAT STAT IV Last administered on 07/27/18at 21:05; Start 07/27/18 at 20:49; Stop 07/27/18 at 20:50; Status DC Lorazepam (Ativan) 1 mg STAT STAT IV Last administered on 07/27/18at 22:12; Start 07/27/18 at 22:07; Stop 07/27/18 at 22:08; Status DC Omeprazole (PriLOSEC) 20 mg DAILY PO Last administered on 07/28/18at 12:51; Start 07/28/18 at 09:00 Paroxetine HCl (PAXil) 40 mg QHS PO ; Start 07/28/18 at 21:00 Piperacillin Sod/ Tazobactam Sod 2.25 gm/Dextrose 50 ml @ 100 mls/hr Q6H IV Last administered on 07/28/18at 12:49; Start 07/28/18 at 06:00 Sodium Chloride 1,400 ml @ 70 mls/hr Q20H IV Last administered on 07/28/18at 01:44; Start 07/27/18 at 23:10; Stop 07/28/18 at 19:09 Allergies Allergies: Coded Allergies: No Known Allergies (Unverified , 05/09/17) Review of Systems Constitutional: Reports: Weakness; Denies: Fever, Chills Skin: Denies: Rash, Lesions, Breakdown, Nail Changes Pulmonary: Denies: Dyspnea, Cough Cardiovascular: Denies Chest Pain, Denies Palpitations Gastrointestinal: Reports: Abdominal Pain Genitourinary: Reports: Dysuria, Hematuria Musculoskeletal: Denies: Neck Pain, Back Pain Psych: Reports: Mood Normal Physical Examination General Exam: Alert, Cooperative Chest Exam: Clear to auscultation Heart Exam: Rate Normal Abdomen Exam: Soft, Tenderness (mild) Female Exam 3-way catheter in place w/ irrigation bag out of fluid and light red urine draining Skin Exam: Nl turgor and temperature Neuro Exam: Normal Speech Psych Exam: Mood NL Vital Signs/I&O Vital Signs Date Time Temp Pulse Resp B/P (MAP) Pulse Ox O2 Delivery O2 Flow Rate FiO2 07/28/18 11:53 97.0 82 18 125/70 (88) 97 07/28/18 11:28 Room Air I&O- Last 24 Hours up to 6 AM 07/28/18 06:00 Intake Total 6500 ml Output Total 5950 ml Balance 550 ml Laboratory Data 24H Labs Laboratory Tests 2 07/27/18 15:46: Immature Granulocyte % (Auto) 0.4, White Blood Count 9.2, Red Blood Count 3.21L, Hemoglobin 9.6L, Hematocrit 31.1L, Mean Corpuscular Volume 96.9H, Mean Corpuscular Hemoglobin 29.9, Mean Corpuscular Hemoglobin Concent 30.9L, Red Cell Distribution Width 14.1, Platelet Count 252, Neutrophils (%) (Auto) 63.8, L ymphocytes (%) (Auto) 21.1L, Monocytes (%) (Auto) 7.4H, Eosinophils (%) (Auto) 6.6H, Basophils (%) (Auto) 0.7, Neutrophils # (Auto) 5.9, Lymphocytes # (Auto) 1.9, Monocytes # (Auto) 0.7, Eosinophils # (Auto) 0.6H, Basophils # (Auto) 0.1, Nucleated Red Blood Cells % (auto) 0.0, Urine Color (BRAYAN) REDH, Urine Appearance (BRAYAN) TURBIDH, Urine pH (BRAYAN) 8.0, Urine Specific [place] (BRAYAN) 1.010, Urine Protein 3+H, Bedside Urine Glucose (UA) NEGATIVE, Bedside Urine Ketones (LAB) NEGATIVE, Bedside Urine Blood POSITIVEH, Bedside Urine Nitrite (LAB) POSITIVEH, Bedside Urine Bilirubin (LAB) NEGATIVE, Bedside Urine Urobilinogen (LAB) NORMAL, Bedside Urine Leukocyte Esterase (L TRACEH, Urine Sediment Examination PERFORMED, Urine RBC TNTCH, Urine WBC 3-5H, Urine Squamous Epithelial Cells NONE SEEN, Urine Bacteria MOD AMOUNTH, Urine Hyaline Casts NONE SEEN, Anion Gap 8, Glomerular Filtration Rate 37.9, Lactic Acid Level 2.5*H, Calcium Level 8.5L, Aspartate Amino Transf (AST/SGOT) 19, Alanine Aminotransferase (ALT/SGPT) 18, Alkaline Phosphatase 62, Total Bilirubin 0.6, Direct Bilirubin 0.1, Total Creat ine Kinase 62, Creatine Kinase MB 2.0, Creatine Kinase MB Relative Index 2.74, Troponin I < 0.02, Total Protein 7.2, Albumin 3.8, Albumin/Globulin Ratio 1.12, Lipase 131 07/27/18 16:40: Prothrombin Time 13.1, Prothromb Time International Ratio 0.98, Activated Partial Thromboplast Time 23.6L 07/28/18 06:42: Nucleated Red Blood Cells % (auto) 0.0, Anion Gap 6L, Glomerular Filtration Rate 44.8, Calcium Level 7.9L, Blood Urea Nitrogen 22H, Creatinine 1.22, Sodium Level 140, Potassium Level 4.6, Chloride Level 109H, Carbon Dioxide Level 25, Magnesium Level 2.7H 07/28/18 07:55: Bedside Glucose (Misc Panel) 103 07/28/18 12:15: Bedside Glucose (Misc Panel) 107 CBC/BMP Laboratory Tests 07/27/18 15:46 Red Blood Count 3.21 L, Mean Corpuscular Volume 96.9 H, Mean Corpuscular Hemoglobin 29.9, Mean Corpuscular Hemoglobin Concent 30.9 L, Red Cell Distribution Width 14.1, Neutrophils (%) (Auto) 63.8, Lymphocytes (%) (Auto) 21.1 L, Monocytes (%) (Auto) 7.4 H, Eosinophils (%) (Auto) 6.6 H, Basophils (%) (Auto) 0.7, Neutrophils # (Auto) 5.9, Lymphocytes # (Auto) 1.9, Monocytes # (Auto) 0.7, Eosinophils # (Auto) 0.6 H, Basophils # (Auto) 0.1 07/28/18 06:42 Red Blood Count 2.85 L, Mean Corpuscular Volume 97.9 H, Mean Corpuscular Hemoglobin 29.8, Mean Corpuscular Hemoglobin Concent 30.5 L, Red Cell Distribution Width 14.3, Calcium Level 7.9 L Microbiology Microbiology 07/27/18 Urine Culture, Received Pending Assessment This is an 82 y/o F admitted for gross hematuria and weakness. Based on UA she likely has a UTI as well. The large mass seen in her bladder is likely tumor but it is also possible that it is clot. I explained that we will need to take her to the OR at some point for cystoscopy, possible bladder tumor resection, possible right ureteral stent. Ideally this is done on an elective basis after she has had medical and cardiac clearance and her UTI is cleared. If she contin ues to have significant hematuria despite being on antibiotics for her UTI, I would probably recommend that we do the surgery on this admission after she has been on antibiotics for at least 2 days. Plan - cont CBI and titrate drip so that urine remains pink or clearer - f/u urine culture result - agree w/ broad spectrum antibiotics for now - transfuse pRBC as needed - if we take patient to the OR on Thursday would recommend transfusing so that Hb is 10 or higher - will continue follow KAUSHIK SINGH MD Jul 28, 2018 13:26
[2018-07-28 13:56] LABS: HEMATOCRIT 30.7 % (36.0-47.0); HEMOGLOBIN 9.2 g/dl (12.0-15.5)
[2018-07-28 15:42] VITALS: BP 112/57
[2018-07-28 19:40] LABS: HEMATOCRIT 26.5 % (36.0-47.0); HEMOGLOBIN 8.3 g/dl (12.0-15.5)
[2018-07-28 20:00] VITALS: BP 114/65
[2018-07-28] MEDS: PARoxetine 20 MG TAB PO SCH (20:28)
[2018-07-28] MEDS: ATORVASTATIN 20 MG TAB PO SCH (20:28)
[2018-07-29] VITALS: BP 133/68
[2018-07-29] MEDS: PIPERACILLIN/TAZOBACTAM SOD 2.25 GM in D5W MINI-BAG PLUS 50 ML IV SCH ×4 (01:03→19:55)
[2018-07-29 01:08] LABS: HEMATOCRIT 24.9 % (36.0-47.0); HEMOGLOBIN 7.8 g/dl (12.0-15.5)
[2018-07-29 04:00] VITALS: BP 130/68
[2018-07-29 06:08] LABS: HEMATOCRIT 28.5 % (36.0-47.0); HEMOGLOBIN 8.9 g/dl (12.0-15.5); MEAN CORPUSCULAR HEMOGLOBIN 29.9 pg (27.0-33.0); MEAN CORPUSCULAR HGB CONC 31.2 g/dl (32.0-36.5); MEAN CORPUSCULAR VOLUME 95.6 fl (80.0-96.0); PLATELET COUNT, AUTOMATED 206 10^3/uL (150-450); RED BLOOD COUNT 2.98 10^6/uL (4.00-5.40); WHITE BLOOD COUNT 7.3 10^3/uL (4.0-10.0)
[2018-07-29 06:31] LABS: CALCIUM LEVEL 7.7 MG/DL (8.8-10.2); CREATININE FOR GFR 1.16 MG/DL (0.55-1.30); GLOMERULAR FILTRATION RATE 47.5 (>32); MAGNESIUM LEVEL 2.4 MG/DL (1.8-2.4)
[2018-07-29 07:57] VITALS: BP 159/76
[2018-07-29] MEDS: SYMBICORT 160/4.5MCG INHALER 6GM INH SCH ×2 (08:11→19:49)
[2018-07-29] MEDS: ACETAMINOPHEN TAB 650MG DOSE (2X325MG) PO PRN (08:22)
[2018-07-29] MEDS: OMEPRAZOLE 20 MG CAP PO SCH (08:22)
[2018-07-29] MEDS: HumaLOG INSULIN (NovoLOG) PER UNIT SC SCH ×4 (08:23→21:00)
[2018-07-29 09:38] LABS: HEMATOCRIT 28.5 % (36.0-47.0); HEMOGLOBIN 8.6 g/dl (12.0-15.5)
[2018-07-29 11:57] VITALS: BP 141/67
[2018-07-29 15:52] VITALS: BP 138/65
--- NOTE | 2018-07-29 16:43 | IPNPDOC ---
Date Seen The patient was seen on 07/29/18. Progress Note SUBJECTIVE: 82-year-old female with past medical history of hypertension, diabetes, asthma, AAA status post graft placement 2014 presented with 4 days of hematuria found to have large bladder mass on CT abdomen and pelvis. Interval history: Patient reported feeling fine, denies any complaints. Had 2 units of pRBC overnight with Hb at 8.6 this afternoon, to get 2 more units. OBJECTIVE PHYSICAL EXAMINATION: VITAL SIGNS: Please see below. General: No acute distress, Alert Eyes: Normal sclera, EOMI, MIRNA HENT: Atraumatic, neck supple, moist mucous membranes Cardiovascular: Normal rate, normal rhythm. No murmurs appreciated. Pulmonary: Clear to auscultation b/l, no wheezing GI: Soft, nontender, nondistended Skin: Warm and dry Neuro: CN grossly intact. No focal deficits. Strengths equal b/l. Psych: oriented x 3 LABORATORY DATA, IMAGING STUDIES, MICROBIOLOGY: Please see below. DVT prophylaxis ordered?: DM ASSESSMENT AND PLAN: 1. Hematuria 2/2 Bladder tumor vs. UTI - CT Abd/Pelvis noted 5x3.7x3.2 cm irregular bladder mass. - Patient on CBI. - Monitor H/H. No significant anemic symptoms. - Type and screen. - Urology following. Tentatively planned for OR for surgery tomorrow. - Will try to transfuse to Hb >9/10 for optimization. - Patient has no known CAD, no reported chest pain. Class I in Revised Cardiac index for perioperative surgical risk. - Hx of Asthma but currently no in exacerbation and is not SOB, no hypoxia. - Continue monitor H/H. - On Zosyn for UTI. f/u urine culture. 2. DEBBIE - IVF hydration. - mild hydronephrosis noted on CT abdomen. - Urology following. 3. Asthma - Nebs PRN. stable. 4. HLD - c/w home meds. 5. HX AAA graft placement 2014 - Stable based on CT findings. 6. DM - ISS. Hold metformin. Full code DISPOSITION: Home when stable. VS, I&O, 24H, Fishbone Vital Signs/I&O Vital Signs Date Time Temp Pulse Resp B/P (MAP) Pulse Ox O2 Delivery O2 Flow Rate FiO2 07/29/18 15:52 97.4 73 18 138/65 (89) 98 07/28/18 11:28 Room Air I&O- Last 24 Hours up to 6 AM 07/29/18 06:00 Intake Total 1315 ml Output Total 1445 ml Balance -130 ml Laboratory Data 24H LABS Laboratory Tests 2 07/28/18 16:54: Bedside Glucose (Misc Panel) 115H 07/28/18 20:20: Bedside Glucose (Misc Panel) 141H 07/29/18 05:13: Nucleated Red Blood Cells % (auto) 0.0, Anion Gap 9, Glomerular Filtration Rate 47.5, Blood Urea Nitrogen 17, Creatinine 1.16, Sodium Level 141, Potassium Level 4.0, Chloride Level 110H, Carbon Dioxide Level 22, Calcium Level 7.7L, Magnesium Level 2.4 07/29/18 12:00: Bedside Glucose (Misc Panel) 82L CBC/BMP Laboratory Tests 07/28/18 19:19 07/29/18 01:01 07/29/18 05:13 Red Blood Count 2.98 L, Mean Corpuscular Volume 95.6, Mean Corpuscular Hemoglobin 29.9, Mean Corpuscular Hemoglobin Concent 31.2 L, Red Cell Distribution Width 14.1, Calcium Level 7.7 L 07/29/18 09:10 Microbiology Microbiology 07/27/18 Urine Culture - Final, Complete Escherichia Coli ABELARDO GARNETT MD Jul 29, 2018 16:42
--- NOTE | 2018-07-29 17:52 | IPNPDOC ---
Assessment/Plan Date Seen The patient was seen on 07/29/18. Patient Summary This is an 82 y/o F admitted for gross hematuria and weakness. Her Hb trended down o/n. Since her hematuria is not improving, I recommend taking her to the OR tomorrow for cystoscopy, transurethral resection of bladder tumor, and possible right ureteral stent placement. This was discussed w/ the patient and her family and they are in agreement w/ this. Plan/VTE VTE Prophylaxis Ordered?: Yes VTE Exclusion Mechanical Proph: N/A:VTE Prophy Ordered Plan/Urinary Catheter Urinary Catheter: Other Catheter: (cont 3-way catheter on CBI - titrate so that urine is pink or clearer) Plan - cont CBI - manually irrigate as needed for clot retention - cont antibiotics for UTI - please transfuse w/ pRBC to bring Hb close to 10 in preparation for surgery to [place] - NPO at midnight - plan for surgery tomorrow Subjective Review oF Systems Chief Complaint The patient is a 82-year-old female admitted with a reason for visit of Hematuria. Events since Last Encounter Patient's catheter was obstructed o/n and cleared up w/ manual irrigation. She denies pain. Denies fevers or chills. Objective Physical Examination General Exam: Alert, Cooperative Chest Exam: Clear to auscultation Heart Exam: Positive: Rate Normal, Normal S1, Normal S2 Skin Exam: Nl turgor and temperature Neuro Exam: Normal Speech Psych Exam: Mental status NL Other physical findings 3-way catheter in place, w/ irrigation wide open and outflow draining light red Vital Signs/I&O Vital Signs Date Time Temp Pulse Resp B/P (MAP) Pulse Ox O2 Delivery O2 Flow Rate FiO2 07/29/18 15:52 97.4 73 18 138/65 (89) 98 07/28/18 11:28 Room Air I&O- Last 24 Hours up to 6 AM 07/29/18 06:00 Intake Total 1315 ml Output Total 1445 ml Balance -130 ml Laboratory Data Labs 24H Laboratory Tests 2 07/28/18 20:20: Bedside Glucose (Misc Panel) 141H 07/29/18 05:13: Nucleated Red Blood Cells % (auto) 0.0, Anion Gap 9, Glomerular Filtration Rate 47.5, Blood Urea Nitrogen 17, Creatinine 1.16, Sodium Level 141, Potassium Level 4.0, Chloride Level 110H, Carbon Dioxide Level 22, Calcium Level 7.7L, Magnesium Level 2.4 07/29/18 12:00: Bedside Glucose (Misc Panel) 82L 07/29/18 17:30: Bedside Glucose (Misc Panel) 312H CBC/BMP Laboratory Tests 07/28/18 19:19 07/29/18 01:01 07/29/18 05:13 Red Blood Count 2.98 L, Mean Corpuscular Volume 95.6, Mean Corpuscular Hemoglobin 29.9, Mean Corpuscular Hemoglobin Concent 31.2 L, Red Cell Distribution Width 14.1, Calcium Level 7.7 L 07/29/18 09:10 FSBS Laboratory Tests Test 07/28/18 20:20 07/29/18 12:00 07/29/18 17:30 Range/Units Bedside Glucose (Misc Panel) 141 82 312 83-110 MG/DL Microbiology Microbiology 07/27/18 Urine Culture - Final, Complete Escherichia Coli KAUSHIK SINGH MD Jul 29, 2018 17:52
[2018-07-29 20:00] VITALS: BP 140/71
[2018-07-29 20:21] LABS: HEMATOCRIT 40.7 % (36.0-47.0); HEMOGLOBIN 13.4 g/dl (12.0-15.5)
[2018-07-29] MEDS: PARoxetine 20 MG TAB PO SCH (21:11)
[2018-07-29] MEDS: ATORVASTATIN 20 MG TAB PO SCH (21:11)
[2018-07-30] VITALS (10 sets, daily range): BP systolic 112–170; BP diastolic 59–85
[2018-07-30] MEDS: PIPERACILLIN/TAZOBACTAM SOD 2.25 GM in D5W MINI-BAG PLUS 50 ML IV SCH ×5 (00:09→23:55)
[2018-07-30 04:56] LABS: HEMATOCRIT 39.6 % (36.0-47.0); MEAN CORPUSCULAR HEMOGLOBIN 29.3 pg (27.0-33.0); MEAN CORPUSCULAR HGB CONC 32.8 g/dl (32.0-36.5); MEAN CORPUSCULAR VOLUME 89.4 fl (80.0-96.0); PLATELET COUNT, AUTOMATED 197 10^3/uL (150-450); RED BLOOD COUNT 4.43 10^6/uL (4.00-5.40); WHITE BLOOD COUNT 7.1 10^3/uL (4.0-10.0)
[2018-07-30 05:16] LABS: CALCIUM LEVEL 7.8 MG/DL (8.8-10.2); CREATININE FOR GFR 1.15 MG/DL (0.55-1.30); POTASSIUM SERUM 4.1 MEQ/L (3.5-5.1)
[2018-07-30] MEDS: HumaLOG INSULIN (NovoLOG) PER UNIT SC SCH ×4 (07:30→20:17)
[2018-07-30] MEDS: SYMBICORT 160/4.5MCG INHALER 6GM INH SCH ×2 (07:32→20:40)
[2018-07-30] MEDS ORDERED: LIDOCAINE 2% INJ 100 MG/5 ML SDV (FOR ANES.) As Ordered ONE (09:23)
[2018-07-30] MEDS ORDERED: ROCURONIUM BROMIDE 50 MG/5 ML VIAL As Ordered ONE (09:23)
[2018-07-30] MEDS ORDERED: PROPOFOL 200 MG/20 ML VIAL As Ordered ONE (09:23)
[2018-07-30] MEDS ORDERED: ONDANSETRON 4MG/2ML VIAL (J2405) As Ordered ONE (09:23)
[2018-07-30] MEDS ORDERED: NEOSTIGMINE 10 MG/10 ML VIAL (J2710) As Ordered ONE (09:23)
[2018-07-30] MEDS ORDERED: dexameTHASONE 4 MG/ML 1ML VIAL (J1100) As Ordered ONE (09:23)
[2018-07-30] MEDS ORDERED: GLYCOPYRROLATE INJ 0.2 MG/ML 2 ML VIAL As Ordered ONE (09:23)
[2018-07-30] MEDS ORDERED: MIDAZOLAM INJ 2 MG/2 ML VIAL (J2250) As Ordered ONE (09:23)
[2018-07-30] MEDS ORDERED: fentaNYL 100 MCG/2 ML INJECTION (J3010) As Ordered ONE (09:24)
[2018-07-30] MEDS: OMEPRAZOLE 20 MG CAP PO SCH (10:40)
--- NOTE | 2018-07-30 10:52 | IPNPDOC ---
Assessment/Plan Date Seen The patient was seen on 07/30/18. Patient Summary This is an 82 y/o F admitted for gross hematuria and weakness. She received 4 units of pRBCs yesterday and her Hb is now stable at 13. Her urine culture grew E coli. Plan/VTE VTE Prophylaxis Ordered?: Yes VTE Exclusion Mechanical Proph: N/A:VTE Prophy Ordered Plan/Urinary Catheter Urinary Catheter: Other Catheter: (cont 3-way catheter on CBI - titrate so that urine is pink or clearer) Plan - continue CBI - continue antibiotics - informed consent signed for cystoscopy, transurethral resection of bladder tumor, right ureteral stent placement - NPO Subjective Review oF Systems Chief Complaint The patient is a 82-year-old female admitted with a reason for visit of Hematuria. Events since Last Encounter No acute events o/n. Patient denies pain. The CBI was slowed down and the urine appears to be clearing a little. Objective Physical Examination General Exam: Alert, Cooperative Chest Exam: Clear to auscultation Heart Exam: Positive: Rate Normal, Normal S1, Normal S2 Skin Exam: Nl turgor and temperature Neuro Exam: Normal Speech Psych Exam: Mental status NL Other physical findings 3-way catheter in place w/ irrigation on medium drip and outflow draining dark pink Vital Signs/I&O Vital Signs Date Time Temp Pulse Resp B/P (MAP) Pulse Ox O2 Delivery O2 Flow Rate FiO2 07/30/18 08:05 98.0 73 20 168/79 (108) 97 07/28/18 11:28 Room Air I&O- Last 24 Hours up to 6 AM 07/30/18 05:59 Intake Total 1253 ml Output Total 3225 ml Balance -1972 ml Laboratory Data Labs 24H Laboratory Tests 2 07/29/18 12:00: Bedside Glucose (Misc Panel) 82L 07/29/18 17:30: Bedside Glucose (Misc Panel) 312H 07/29/18 21:07: Bedside Glucose (Misc Panel) 114H 07/30/18 04:43: Nucleated Red Blood Cells % (auto) 0.0, Anion Gap 5L, Glomerular Filtration Rate 48.0, Blood Urea Nitrogen 12, Creatinine 1.15, Sodium Level 142, Potassium Level 4.1, Chloride Level 112H, Carbon Dioxide Level 25, Calcium Level 7.8L, Magnesium Level 2.0 CBC/BMP Laboratory Tests 07/29/18 20:10 07/30/18 04:43 Red Blood Count 4.43, Mean Corpuscular Volume 89.4, Mean Corpuscular Hemoglobin 29.3, Mean Corpuscular Hemoglobin Concent 32.8, Red Cell Distribution Width 16.0 H, Calcium Level 7.8 L FSBS Laboratory Tests Test 07/29/18 12:00 07/29/18 17:30 07/29/18 21:07 Range/Units Bedside Glucose (Misc Panel) 82 312 114 83-110 MG/DL Microbiology Microbiology 07/27/18 Urine Culture - Final, Complete Escherichia Coli KAUSHIK SINGH MD Jul 30, 2018 10:52
[2018-07-30] MEDS: ACETAMINOPHEN TAB 650MG DOSE (2X325MG) PO PRN (14:16)
--- NOTE | 2018-07-30 15:32 | IPNPDOC ---
Date Seen The patient was seen on 07/30/18. Progress Note SUBJECTIVE: 82-year-old female with past medical history of hypertension, diabetes, asthma, AAA status post graft placement 2014 presented with 4 days of hematuria found to have large bladder mass on CT abdomen and pelvis. Interval history: Patient reported feeling fine again this afternoon. Reports some discomfort in her L. knee and denies any other complaints. Planned for cystoscopy and transurethral resection of bladder tumor today. OBJECTIVE PHYSICAL EXAMINATION: VITAL SIGNS: Please see below. General: No acute distress, Alert Eyes: Normal sclera, EOMI, MIRNA HENT: Atraumatic, neck supple, moist mucous membranes Cardiovascular: Normal rate, normal rhythm. No murmurs appreciated. Pulmonary: Clear to auscultation b/l, no wheezing GI: Soft, nontender, nondistended Skin: Warm and dry Neuro: CN grossly intact. No focal deficits. Strengths equal b/l. Psych: oriented x 3 LABORATORY DATA, IMAGING STUDIES, MICROBIOLOGY: Please see below. DVT prophylaxis ordered?: DM ASSESSMENT AND PLAN: 1. Hematuria 2/2 Bladder tumor vs. UTI - CT Abd/Pelvis noted 5x3.7x3.2 cm irregular bladder mass. - Patient on CBI. - Monitor H/H. No significant anemic symptoms. - Urology following. - On Zosyn for UTI. f/u urine culture. - Planned for cystoscopy and transurethral resection of bladder tumor today. 2. DEBBIE - IVF hydration. - mild hydronephrosis noted on CT abdomen. - Urology following. 3. Asthma - Nebs PRN. stable. 4. HLD - c/w home meds. 5. HX AAA graft placement 2014 - Stable based on CT findings. 6. DM - ISS. Hold metformin. Full code DISPOSITION: Home when stable. VS, I&O, 24H, Fishbone Vital Signs/I&O Vital Signs Date Time Temp Pulse Resp B/P (MAP) Pulse Ox O2 Delivery O2 Flow Rate FiO2 07/30/18 12:00 97.9 89 20 170/80 (110) 95 07/28/18 11:28 Room Air I&O- Last 24 Hours up to 6 AM 07/30/18 06:00 Intake Total 1303 ml Output Total 3225 ml Balance -1922 ml Laboratory Data 24H LABS Laboratory Tests 2 07/29/18 17:30: Bedside Glucose (Misc Panel) 312H 07/29/18 21:07: Bedside Glucose (Misc Panel) 114H 07/30/18 04:43: Nucleated Red Blood Cells % (auto) 0.0, Anion Gap 5L, Glomerular Filtration Rate 48.0, Blood Urea Nitrogen 12, Creatinine 1.15, Sodium Level 142, Potassium Level 4.1, Chloride Level 112H, Carbon Dioxide Level 25, Calcium Level 7.8L, Magnesium Level 2.0 07/30/18 12:41: Bedside Glucose (Misc Panel) 127H CBC/BMP Laboratory Tests 07/29/18 20:10 07/30/18 04:43 Red Blood Count 4.43, Mean Corpuscular Volume 89.4, Mean Corpuscular Hemoglobin 29.3, Mean Corpuscular Hemoglobin Concent 32.8, Red Cell Distribution Width 16.0 H, Calcium Level 7.8 L Microbiology Microbiology 07/27/18 Urine Culture - Final, Complete Escherichia Coli ABELARDO GARENTT MD Jul 30, 2018 15:32
[2018-07-30] MEDS ORDERED: CONRAY-60 60% 50ML VIAL (Q9961) As Ordered ONE (16:46)
[2018-07-30] MEDS ORDERED: ZOSYN 2.25 GM VIAL (J2543) As Ordered ONE (17:16)
[2018-07-30] MEDS ORDERED: PHENYLephrine HCL 500 MCG/5 ML (100MCG/ML) SYRINGE (J2370) As Ordered ONE (17:16)
[2018-07-30] MEDS ORDERED: FUROSEMIDE 100 MG/10 ML VIAL (J1940) As Ordered ONE (17:52)
[2018-07-30] MEDS ORDERED: NORCO, ANEXSIA 5/325MG TABLET (HYDROcodone/ACETAMINOPHEN) PO PRN (18:45)
[2018-07-30] MEDS ORDERED: LR 1,000 ML IV SCH (18:45)
[2018-07-30] MEDS ORDERED: fentaNYL 100 MCG/2 ML INJECTION (J3010) IV PRN (18:45)
[2018-07-30] MEDS ORDERED: ONDANSETRON 4MG/2ML VIAL (J2405) IV PRN (18:45)
--- NOTE | 2018-07-30 18:47 | REP ---
Retrograde pyelogram: A series of four intraoperative fluoroscopic views are performed during opacification of the right and left ureters. An aortic endovascular stent is incidentally identified. Fluoroscopic exposure time is 5 seconds. Fluoroscopic images are performed last image hold technology and require no additional radiation. Electronically Signed by Jose Coffey MD 07/30/2018 06:39 P
[2018-07-30] MEDS: PARoxetine 20 MG TAB PO SCH (20:16)
[2018-07-30] MEDS: ATORVASTATIN 20 MG TAB PO SCH (20:17)
[2018-07-31 04:00] VITALS: BP 128/66
[2018-07-31 05:50] LABS: HEMATOCRIT 38.4 % (36.0-47.0); HEMOGLOBIN 12.5 g/dl (12.0-15.5); MEAN CORPUSCULAR HEMOGLOBIN 29.1 pg (27.0-33.0); MEAN CORPUSCULAR HGB CONC 32.6 g/dl (32.0-36.5); MEAN CORPUSCULAR VOLUME 89.3 fl (80.0-96.0); PLATELET COUNT, AUTOMATED 218 10^3/uL (150-450); WHITE BLOOD COUNT 5.4 10^3/uL (4.0-10.0)
[2018-07-31] MEDS: PIPERACILLIN/TAZOBACTAM SOD 2.25 GM in D5W MINI-BAG PLUS 50 ML IV SCH ×3 (06:07→18:45)
[2018-07-31 06:14] LABS: CALCIUM LEVEL 8.1 MG/DL (8.8-10.2); CREATININE FOR GFR 1.24 MG/DL (0.55-1.30); MAGNESIUM LEVEL 1.9 MG/DL (1.8-2.4); POTASSIUM SERUM 4.3 MEQ/L (3.5-5.1)
[2018-07-31] MEDS: ACETAMINOPHEN TAB 650MG DOSE (2X325MG) PO PRN ×2 (06:58→20:05)
[2018-07-31] MEDS: SYMBICORT 160/4.5MCG INHALER 6GM INH SCH ×2 (07:56→21:26)
[2018-07-31 08:00] VITALS: BP 182/97
[2018-07-31] MEDS: OMEPRAZOLE 20 MG CAP PO SCH (08:52)
[2018-07-31] MEDS: HumaLOG INSULIN (NovoLOG) PER UNIT SC SCH ×4 (08:52→20:08)
--- NOTE | 2018-07-31 09:13 | RO ---
DATE OF PROCEDURE: 07/30/2018 PREPROCEDURE DIAGNOSIS: Gross hematuria. POSTPROCEDURE DIAGNOSIS: Gross hematuria. PROCEDURE: Cystoscopy, clot evacuation, bilateral retrograde pyelogram with intraoperative interpretation of images. SURGEON: Tulio Braxton MD RETAIL STOCKER: None. ANESTHESIA: General. OPERATIVE INDICATIONS: This is an 82-year-old female who presented to the emergency room a few nights ago with gross hematuria. A CT scan was obtained and was notable for a possible 5 cm bladder tumor. Also of note she had mild right hydroureteronephrosis and was diagnosed with E. coli urinary tract infection. Due to continued bleeding she was brought to the operating room to investigate the cause of bleeding and to resect the bladder tumor. DESCRIPTION OF PROCEDURE: Patient was brought to the operating room where general anesthesia was induced and prophylactic antibiotics were infused. She was then placed in the dorsal lithotomy position, prepped and draped in the usual sterile fashion. At this point, a resectoscope was inserted through the meatus and advanced into the bladder using a visual obturator. Within the bladder, there was a large amount of blood clot. An [employer] evacuator was then utilized to evacuate all the clot from the bladder. One this was done the bladder was thoroughly examined. Of note, no bladder tumors were seen. The urothelial mucosa appeared to be very much inflamed. Bilateral ureteral orifices were orthotopic and both effluxed clear urine. At this point, bilateral retrogram pyelograms were performed and were negative for filling defects, but there was mild right hydronephrosis. There was no active source of bleeding seen, but of note, just with brushing against the urothelial mucosa it started to bleed easily. This indicated that her bleeding was likely due to inflammation due to the urinary tract infection. At this point, the scope was removed and an 18 [place] Schneider catheter was inserted into the bladder. The balloon was filled with 10 mL of sterile water and then the catheter was connected to gravity drainage. This marked the conclusion of the procedure. The patient was then take out of dorsal lithotomy position, awakened from anesthesia and sent to the recovery room in stable condition. ESTIMATED BLOOD LOSS: 5 mL. COMPLICATIONS: None. SPECIMENS: None. PLAN: The patient will be monitored in the hospital and assuming is resolved at this point, treatment of urinary tract infection she will be discharged home.
--- NOTE | 2018-07-31 10:49 | IPNPDOC ---
Date Seen The patient was seen on 07/31/18. Progress Note SUBJECTIVE: 82-year-old female with past medical history of hypertension, diabetes, asthma, AAA status post graft placement 2014 presented with 4 days of hematuria found to have large bladder mass on CT abdomen and pelvis. Interval history: Patient reports no complaints morning states that she is feeling well. Status post cystoscopy yesterday with a large blood clot found. Urine has been clear post procedure. Patient's a reported some left knee/popliteal discomfort. OBJECTIVE PHYSICAL EXAMINATION: VITAL SIGNS: Please see below. General: No acute distress, Alert Eyes: Normal sclera, EOMI, MIRNA HENT: Atraumatic, neck supple, moist mucous membranes Cardiovascular: Normal rate, normal rhythm. No murmurs appreciated. Pulmonary: Clear to auscultation b/l, no wheezing GI: Soft, nontender, nondistended Skin: Warm and dry Neuro: CN grossly intact. No focal deficits. Strengths equal b/l. Psych: oriented x 3 LABORATORY DATA, IMAGING STUDIES, MICROBIOLOGY: Please see below. Cystoscopy results: DESCRIPTION OF PROCEDURE: Patient was brought to the operating room where general anesthesia was induced and prophylactic antibiotics were infused. She was then placed in the dorsal lithotomy position, prepped and draped in the usual sterile fashion. At this point, a resectoscope was inserted through the meatus and advanced into the bladder using a visual obturator. Within the bladder, there was a large amount of blood clot. An ShipEarly evacuator was then utilized to evacuate all the clot from the bladder. One this was done the bladder was thoroughly examined. Of note, no bladder tumors were seen. The urothelial mucosa appeared to be very much inflamed. Bilateral ureteral orifices were orthotopic and both effluxed clear urine. At this point, bilateral retrogram pyelograms were performed and were negative for filling defects, but there was mild right hydronephrosis. There was no active source of bleeding seen, but of note, just with brushing against the urothelial mucosa it started to bleed easily. This indicated that her bleeding was likely due to inflammation due to the urinary tract infection. DVT prophylaxis ordered?: DM ASSESSMENT AND PLAN: 1. Hematuria 2/2 Bladder tumor vs. UTI - CT Abd/Pelvis noted 5x3.7x3.2 cm irregular bladder mass. However, likely just a large clot based on cystoscopy findings. - Bleeding likely 2/2 to UTI. H/H had been stable. - Monitor H/H. - Urine culture + e.coli. - c/w Zosyn for now and transition to PO upon discharge. 2. DEBBIE - IVF hydration. - mild hydronephrosis noted on CT abdomen. - Urology following. 3. Asthma - Nebs PRN. stable. 4. HLD - c/w home meds. 5. HX AAA graft placement 2014 - Stable based on CT findings. 6. DM - ISS. Hold metformin. . 7. L. knee pain - Obtain LE doppler to r/o DVT/cysts. - Also XR of L. knee. Full code DISPOSITION: Anticipate d/c home tomorrow morning if stable and all tests are completed. VS, I&O, 24H, Fishbone Vital Signs/I&O Vital Signs Date Time Temp Pulse Resp B/P (MAP) Pulse Ox O2 Delivery O2 Flow Rate FiO2 07/31/18 08:00 98.3 74 20 182/97 (125) 97 07/31/18 04:00 2.0 07/28/18 11:28 Room Air I&O- Last 24 Hours up to 6 AM 07/31/18 06:00 Intake Total 1320 ml Output Total 1650 ml Balance -330 ml Laboratory Data 24H LABS Laboratory Tests 2 07/30/18 12:41: Bedside Glucose (Misc Panel) 127H 07/30/18 19:51: Bedside Glucose (Misc Panel) 143H 07/31/18 05:15: Nucleated Red Blood Cells % (auto) 0.0, Anion Gap 9, Glomerular Filtration Rate 44.0, Blood Urea Nitrogen 15, Creatinine 1.24, Sodium Level 139, Potassium Level 4.3, Chloride Level 106, Carbon Dioxide Level 24, Calcium Level 8.1L, Magnesium Level 1.9 CBC/BMP Laboratory Tests 07/31/18 05:15 Red Blood Count 4.30, Mean Corpuscular Volume 89.3, Mean Corpuscular Hemoglobin 29.1, Mean Corpuscular Hemoglobin Concent 32.6, Red Cell Distribution Width 15.3 H, Calcium Level 8.1 L Microbiology Microbiology 07/27/18 Urine Culture - Final, Complete Escherichia Coli ABELARDO GARNETT MD Jul 31, 2018 10:49
[2018-07-31] MEDS: ASPIRIN 81 MG ENTERIC TAB PO SCH (12:49)
[2018-07-31] MEDS: LISINOPRIL *2.5 MG* TAB PO SCH (12:49)
[2018-07-31 16:00] VITALS: BP 154/76
[2018-07-31 20:00] VITALS: BP 127/66
[2018-07-31] MEDS: ATORVASTATIN 20 MG TAB PO SCH (20:04)
[2018-07-31] MEDS: PARoxetine 20 MG TAB PO SCH (20:04)
[2018-07-31 23:59] VITALS: BP 129/60
[2018-08-01] MEDS: PIPERACILLIN/TAZOBACTAM SOD 2.25 GM in D5W MINI-BAG PLUS 50 ML IV SCH ×3 (00:40→12:00)
[2018-08-01 04:00] VITALS: BP 139/72
[2018-08-01] MEDS: ACETAMINOPHEN TAB 650MG DOSE (2X325MG) PO PRN (05:24)
[2018-08-01 05:57] LABS: HEMOGLOBIN 12.3 g/dl (12.0-15.5); MEAN CORPUSCULAR HEMOGLOBIN 28.7 pg (27.0-33.0); MEAN CORPUSCULAR HGB CONC 31.5 g/dl (32.0-36.5); MEAN CORPUSCULAR VOLUME 91.1 fl (80.0-96.0); PLATELET COUNT, AUTOMATED 250 10^3/uL (150-450); RED BLOOD COUNT 4.28 10^6/uL (4.00-5.40); WHITE BLOOD COUNT 9.1 10^3/uL (4.0-10.0)
[2018-08-01 06:26] LABS: CALCIUM LEVEL 8.3 MG/DL (8.8-10.2); CREATININE FOR GFR 1.27 MG/DL (0.55-1.30); GLOMERULAR FILTRATION RATE 42.8 (>32); MAGNESIUM LEVEL 1.9 MG/DL (1.8-2.4)
[2018-08-01] MEDS: HumaLOG INSULIN (NovoLOG) PER UNIT SC SCH ×2 (07:30→12:00)
[2018-08-01 07:34] VITALS: BP 139/75
[2018-08-01] MEDS: SYMBICORT 160/4.5MCG INHALER 6GM INH SCH (07:47)
[2018-08-01] MEDS: ASPIRIN 81 MG ENTERIC TAB PO SCH (08:32)
--- NOTE | 2018-08-01 08:32 | IPN ---
DATE: 07/31/2018 The patient is admitted with a history of hematuria for which she underwent cystoscopy, bilateral retrograde ureteropyelograms, and evacuation of the clot yesterday. Patient this morning has been very comfortable, other than the pain in the knee joint for which an x-ray and a deep vein thrombosis (DVT) scan is being performed. She does not have any suprapubic pain, abdominal pain, fever, chills, nausea, or vomiting. She had a comfortable night. On physical exam, she is alert, awake, oriented times three. Abdomen is soft, nondistended, nontender. Schneider catheter is in place draining very clear urine with no evidence of any gross hematuria. Her hemoglobin has been stable. At this point in time, we would recommend that her catheter can be removed at any point in time, and she can be discharged from the urology service if she is stable medically.
[2018-08-01 08:33] VITALS: BP 139/75
[2018-08-01] MEDS: OMEPRAZOLE 20 MG CAP PO SCH (08:33)
[2018-08-01] MEDS: LISINOPRIL *2.5 MG* TAB PO SCH (08:33)
--- NOTE | 2018-08-01 09:13 | REP ---
Left lower extremity deep vein duplex ultrasound: The deep veins demonstrate normal compression, normal Doppler color flow and normal Doppler waveforms with respiration and augmentation from the popliteal vein to the common femoral vein. Impression: There is no left lower extremity deep vein thrombus. Electronically Signed by Jose Coffey MD 07/31/2018 11:30 A
--- NOTE | 2018-08-01 09:13 | REP ---
Left knee five views: There are no comparisons. 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 There is no fracture or dislocation. There is no effusion. There is mild tricompartment osteoarthritis. Electronically Signed by Jose Coffey MD 07/31/2018 11:29 A
[2018-08-01] MEDS ORDERED: LEVA1TAB2 PO (10:04)
--- NOTE | 2018-08-01 10:05 | DS.PDOC ---
Discharge Summary General Date of Admission Jul 27, 2018 at 23:10 Date of Discharge 08/01/18 Attending Physician: ABELARDO GARNETT MD Specialist/Consultants Involve Dr. Tulio Braxton Urology Discharge Summary PROCEDURES PERFORMED DURING STAY: PROCEDURE: Cystoscopy, clot evacuation, bilateral retrograde pyelogram with intraoperative interpretation of images. ADMITTING DIAGNOSES: 1. UTI 2. Bladder Mass 3. Hematuria 4. DEBBIE 5. Asthma 6. HLD 7. DM 8. hx AAA graft placement 9. L. knee pain DISCHARGE DIAGNOSES: 1. UTI 2. Bladder clot s/p evacuation 3. Hematuria 4. DEBBIE 5. Asthma 6. HLD 7. DM 8. hx AAA graft placement 9. L. knee arthritis COMPLICATIONS/CHIEF COMPLAINT: Hematuria. HISTORY OF PRESENT ILLNESS: "82-year-old female with past medical history of hypertension, dyslipidemia, diabetes mellitus, asthma, abdominal aortic aneurysm status post graft placement in 2014, GERD, and anxiety presents to the ER with chief complaint of blood in the urine for the past 4 days. The patient states that this started Thursday afternoon, when she noticed bright red blood in her urine. She states that her urine was intermittently bloody over the weekend, but has remained bright red over the last 2 days. The patient also endorses a 30 pound non-intentional weight loss over the last 18 months. She states that she has felt generally fatigued during this time. The patient denies any similar episodes of hematuria in the past. However, it appears that the patient does have a history of microscopic hematuria, and she was evaluated by urology in December 2015 and there was a plan for cystoscopy. The patient does not remember this, and states that she has not had a cystoscopy done before. At this time, the patient denies any complaints of fevers, chills, chest pain, palpitations, shortness of breath, abdominal pain, or any nausea/vomiting/diarrhea. In the ER, the patient's hemoglobin was noted to be 9.6, down from her baseline of 12.9 from [address] scan of the abdomen/pelvis revealed a large irregular bladder mass consistent with a primary bladder tumor. Urology was contacted by the ER, and will see the patient in the AM. The patient will be admitted to the hospitalist service for further evaluation and management." HOSPITAL COURSE: She is a 2-year-old female past medical history of diabetes mellitus, hypertension, AAA reset his ER with complaints of hematuria for 4 days. In ER, ET abdomen noted a large irregular bladder mass concerning for bladder tumor as well as a UTI. Patient was evaluated by urology and had CPI followed by cystoscopy which found a large blood clot within the bladder and it was evacuated. Hematuria had completely resolved post procedure and hemoglobin remained stable. Cystoscopy findings suggestive of hematuria secondary to UTI leading to bladder wall irritation and inflammation. She was on IV antibiotics during course of admission. Patient reported feeling well and had no complaints this morning. We'll discharge patient to follow-up with PCP within one week and complete course of by mouth antibiotics. Out of susceptible to by mouth antibiotics, it appears that Levaquin has the best YUDY for treatment of this UTI, although not ideal given patient's age. Patient is only prescribed a short course and counseled on possible side effects and recommended to stop with any severe joint pains. DISCHARGE MEDICATIONS: Please see below. ALLERGIES: Please see below. PHYSICAL EXAMINATION ON DISCHARGE: VITAL SIGNS: Please see below. General: No acute distress, Alert Eyes: Normal sclera, EOMI, MIRNA HENT: Atraumatic, neck supple, moist mucous membranes Cardiovascular: Normal rate, normal rhythm. No murmurs appreciated. Pulmonary: Clear to auscultation b/l, no wheezing GI: Soft, nontender, nondistended Skin: Warm and dry Neuro: CN grossly intact. No focal deficits. Strengths equal b/l. Psych: oriented x 3 LABORATORY DATA: Please see below. IMAGING: Abdominal/Pelvis CT- IMPRESSION: 1. Status post placement of a bifurcating endograft in the abdominal aorta. The proximal and distal anastomoses appear unremarkable. No evidence of an endograft leak. [place] abdominal aortic aneurysm measures 5.3 x 4.5 centimeters maximally. 2. Mild hydroureteronephrosis on the right to the UV junction. 3. Large irregular bladder mass measures 5 x 3.7 x 3.2 centimeters. 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 Retrograde Pyelogram- Retrograde pyelogram: A series of four intraoperative fluoroscopic views are performed during opacification of the right and left ureters. An aortic endovascular stent is incidentally identified. Fluoroscopic exposure time is 5 seconds. Fluoroscopic images are performed last image hold technology and require no additional radiation. LLE US- No evidence of DVT L. knee XR- Evidence of osteoarthritis. No other acute findings. ACTIVITY: [As tolerated]. DIET: Diabetic diet DISCHARGE PLAN: Complete course of PO Levaquin for UTI. F/u with PCP within 1 week. DISPOSITION: Home. DISCHARGE INSTRUCTIONS: Complete course of PO Levaquin for UTI. F/u with PCP within 1 week. ITEMS TO FOLLOWUP ON ON OUTPATIENT: 1. None DISCHARGE CONDITION: [Stable]. TIME SPENT ON DISCHARGE: Greater than 30 minutes. Vital Signs/I&Os Vital Signs Date Time Temp Pulse Resp B/P (MAP) Pulse Ox O2 Delivery O2 Flow Rate FiO2 08/01/18 08:33 139/75 08/01/18 07:34 97.2 75 20 95 07/31/18 08:40 2.0 07/28/18 11:28 Room Air I&O- Last 24 Hours up to 6 AM 08/01/18 06:00 Intake Total 1210 ml Output Total 1500 ml Balance -290 ml Laboratory Data Labs 24H Laboratory Tests 2 07/31/18 12:47: Bedside Glucose (Misc Panel) 165H 07/31/18 17:02: Bedside Glucose (Misc Panel) 115H 07/31/18 19:53: Bedside Glucose (Misc Panel) 133H 08/01/18 04:50: Nucleated Red Blood Cells % (auto) 0.0, Anion Gap 7L, Glomerular Filtration Rate 42.8, Blood Urea Nitrogen 23#H, Creatinine 1.27, Sodium Level 140, Potassium Level 4.0, Chloride Level 107, Carbon Dioxide Level 26, Calcium Level 8.3L, Magnesium Level 1.9 CBC/BMP Laboratory Tests 08/01/18 04:50 Red Blood Count 4.28, Mean Corpuscular Volume 91.1, Mean Corpuscular Hemoglobin 28.7, Mean Corpuscular Hemoglobin Concent 31.5 L, Red Cell Distribution Width 15.2 H, Calcium Level 8.3 L FSBS Laboratory Tests Test 07/31/18 12:47 07/31/18 17:02 07/31/18 19:53 Range/Units Bedside Glucose (Misc Panel) 165 115 133 83-110 MG/DL Microbiology Microbiology 07/27/18 Urine Culture - Final, Complete Escherichia Coli Discharge Medications Scheduled Aspirin (Aspir 81) 81 Mg Tablet.dr, 81 MG PO DAILY, (Reported) Atorvastatin Calcium (Atorvastatin Calcium) 20 Mg Tablet, 20 MG PO QHS, (Reported) Budesonide/Formoterol (Symbicort 160-4.5 Mcg Inhaler) 6 Gm Hfa.aer.ad, 2 PUFF INH BID, (Reported) Levofloxacin (Levaquin) 500 Mg Tablet, 500 MG PO DAILY Lisinopril (Lisinopril) 2.5 Mg Tab, 2.5 MG PO DAILY, (Reported) Metformin HCl (Metformin HCl ER) 750 Mg Tab.er.24h, 1,500 MG PO QPM, (Reported) Omeprazole (Omeprazole) 20 Mg Cap, 20 MG PO DAILY, (Reported) Paroxetine HCl (Paroxetine HCl) 40 Mg Tablet, 40 MG PO QHS, (Reported) Scheduled PRN Albuterol Sulf (Albuterol Sulfate) 2.5 Mg/3 Ml Nebu, 1 VIAL INH QID PRN for SHORTNESS OF BREATH, (Reported) Allergies Coded Allergies: No Known Allergies (Unverified , 05/09/17) ABELARDO GARNETT MD Aug 01, 2018 10:05
[2018-08-01] MEDS ORDERED: LevoFLOXacin 500 MG TABLET PO ONE (15:00)
[2018-08-01] MEDS ORDERED: LEVO250T12 PO (15:01)
== END 2018-08-01 15:17 | disposition home health service (06) | DRG 690 ==
LOC: M ED 15:05 → M ED INP 23:10 → M PCU 07-28 11:45
PROVIDERS: ADMIT Internal Medicine; ATTEND Student in an Organized Health Care Education/Training Program
PROC: 30233N1 Transfusion of Nonautologous Red Blood Cells into Peripheral Vein, Percutaneous Approach (ICD-10-PCS; 2018-07-29)
PROC: 0TCB8ZZ Extirpation of Matter from Bladder, Via Natural or Artificial Opening Endoscopic (ICD-10-PCS; principal; 2018-07-30 15:40)
DX: N39.0 Urinary tract infection, site not specified (principal); E87.2 Acidosis; D62 Acute posthemorrhagic anemia; N17.9 Acute kidney failure, unspecified; E78.5 Hyperlipidemia, unspecified; E11.9 Type 2 diabetes mellitus without complications; R31.9 Hematuria, unspecified; I50.9 Heart failure, unspecified; J45.909 Unspecified asthma, uncomplicated; M17.12 Unilateral primary osteoarthritis, left knee; B96.20 Unspecified Escherichia coli [E. coli] as the cause of diseases classified elsewhere; K21.9 Gastro-esophageal reflux disease without esophagitis; F32.9 Major depressive disorder, single episode, unspecified; F41.9 Anxiety disorder, unspecified; I11.0 Hypertensive heart disease with heart failure; Z79.82 Long term (current) use of aspirin; Z79.84 Long term (current) use of oral hypoglycemic drugs; Z79.899 Other long term (current) drug therapy; Z79.891 Long term (current) use of opiate analgesic; Z95.828 Presence of other vascular implants and grafts

== ENCOUNTER → 2018-08-20 | Outpatient (REF) | payer MEDICARE ==
[~2018-08-20] MED LIST changes: +ASPI81TA85 PO; +ATOR1TAB21 PO; +LEVA1TAB2 PO; +LEVO250T12 PO; +METF750T PO; +PARO40TA2 PO; +SYMB16INH INH; +SYMB80INH INH
[2018-08-20 15:26] LABS: APPEARANCE, URINE TURBID (CLEAR); BACTERIA, URINE AUTO 3+ (NEGATIVE); BILIRUBIN, URINE AUTO NEGATIVE (NEGATIVE); BLOOD, URINE BLOOD 3+ (NEGATIVE); COLOR, URINE AMBER (YELLOW); GLUCOSE, URINE (UA) AUTO NEGATIVE (NEGATIVE); KETONE, URINE AUTO NEGATIVE (NEGATIVE); LEUKOCYTE ESTERASE, URINE AUTO 3+ (NEGATIVE); NITRITE, URINE AUTO NEGATIVE (NEGATIVE); PROTEIN, URINE AUTO 2+ mg/dL (NEGATIVE); RBC, URINE AUTO TNTC /HPF (0-3); SPECIFIC GRAVITY URINE AUTO 1.026 (1.002-1.035); SQUAMOUS EPITHELIAL CELL UR AU 9 /HPF (0-6); UROBILINOGEN, URINE AUTO 0.2 mg/dL (0.0-2.0); WBC, URINE AUTO TNTC /HPF (0-3)
== END ==
LOC: M LAB REF 14:29
PROVIDERS: ATTEND Internal Medicine
DX: N39.0 Urinary tract infection, site not specified (principal)

== ENCOUNTER → 2018-10-01 | Outpatient (REF) | payer MEDICARE ==
[2018-10-01 12:04] LABS: AMORPHOUS SEDIMENT SMALL (NEGATIVE); APPEARANCE, URINE CLOUDY (CLEAR); BACTERIA, URINE AUTO 3+ (NEGATIVE); BILIRUBIN, URINE AUTO NEGATIVE (NEGATIVE); BLOOD, URINE BLOOD 2+ (NEGATIVE); COLOR, URINE YELLOW (YELLOW); GLUCOSE, URINE (UA) AUTO NEGATIVE (NEGATIVE); KETONE, URINE AUTO NEGATIVE (NEGATIVE); LEUKOCYTE ESTERASE, URINE AUTO 3+ (NEGATIVE); MUCUS, URINE SMALL (NEGATIVE); NITRITE, URINE AUTO POSITIVE (NEGATIVE); PROTEIN, URINE AUTO NEGATIVE (NEGATIVE); RBC, URINE AUTO 28 /HPF (0-3); SPECIFIC GRAVITY URINE AUTO 1.018 (1.002-1.035); SQUAMOUS EPITHELIAL CELL UR AU 2 /HPF (0-6); UROBILINOGEN, URINE AUTO 0.2 mg/dL (0.0-2.0); WBC, URINE AUTO TNTC /HPF (0-3)
== END ==
LOC: M SMT 11:24
PROVIDERS: ATTEND Nurse Practitioner Family
DX: N39.0 Urinary tract infection, site not specified (principal)

== ENCOUNTER 2019-09-15 16:31 | Emergency (ER) | payer MEDICARE ==
[~2019-09-15] VITALS: Ht 162.6 cm; Wt 65.9 kg
[2019-09-15 16:31] VITALS: BP 140/77
[~2019-09-15 16:31] MED LIST changes: -LISI-1046 PO; +LISI2.5T2 PO; -METF750T PO; +METF750T36 PO; +OMEP1CAP73 PO; -OMEP20CA3 PO; +PROV108A INH
--- NOTE | 2019-09-15 17:08 | REPVR ---
PROCEDURE INFORMATION: Exam: CT Head Without Contrast Exam date and time: 09/15/2019 4:49 PM Age: 83 years old Clinical indication: Injury or trauma; Fall; Initial encounter; Blunt trauma (contusions or hematomas) TECHNIQUE: Imaging protocol: Computed tomography of the head without contrast. Radiation optimization: All CT scans at this facility use at least one of these dose optimization techniques: automated exposure control; mA and/or kV adjustment per patient size (includes targeted exams where dose is matched to clinical indication); or iterative reconstruction. COMPARISON: CT Head without contrast 03/01/2015 3:53 PM FINDINGS: Brain: There are moderate periventricular and subcortical lucencies consistent with chronic microvascular ischemic changes. The nur-white differentiation is maintained. No hemorrhage. No edema. Ventricles: Normal. No ventriculomegaly. Bones/joints: Unremarkable. No acute fracture. Sinuses: Visualized sinuses are unremarkable. No fluid levels. Mastoid air cells: Visualized mastoid air cells are well aerated. Orbits: Bilateral cataract surgery. Vasculature: Vascular calcifications. Soft tissues: Unremarkable. IMPRESSION: No acute intracranial abnormality. Chronic microvascular ischemic changes. Electronically signed by: Kwame Brooks On 09/15/2019 17:07:56 PM
--- NOTE | 2019-09-15 17:14 | REPVR ---
PROCEDURE INFORMATION: Exam: CT Cervical Spine Without Contrast Exam date and time: 09/15/2019 4:49 PM Age: 83 years old Clinical indication: Injury or trauma; Fall; Initial encounter; Blunt trauma TECHNIQUE: Imaging protocol: Computed tomography images of the cervical spine without contrast. Radiation optimization: All CT scans at this facility use at least one of these dose optimization techniques: automated exposure control; mA and/or kV adjustment per patient size (includes targeted exams where dose is matched to clinical indication); or iterative reconstruction. COMPARISON: CT Spine,cervical w/o contrast 03/01/2015 3:53 PM FINDINGS: Vertebrae: No spondylolisthesis. No acute fracture. No severe spinal canal stenosis. No significant neural foraminal narrowing. Other bones/joints: Diffuse demineralization of the bones. Soft tissues: Unremarkable. Lungs: Lung apices are normal. Other findings: Multilevel degenerative disc disease, most prominent at C6-C7 level. There is multilevel uncovertebral and facet hypertrophy with neural foramina narrowing. IMPRESSION: No acute abnormality. Electronically signed by: Kwame Brooks On 09/15/2019 17:13:53 PM
== END 2019-09-15 17:46 | disposition home or self-care (01) ==
LOC: M ED 16:31
DX: S09.90XA Unspecified injury of head, initial encounter (principal); W18.09XA Striking against other object with subsequent fall, initial encounter; Y92.002 Bathroom of unspecified non-institutional (private) residence as the place of occurrence of the external cause; Z87.891 Personal history of nicotine dependence; S41.112A Laceration without foreign body of left upper arm, initial encounter; I50.9 Heart failure, unspecified; E78.00 Pure hypercholesterolemia, unspecified; I11.0 Hypertensive heart disease with heart failure; J45.909 Unspecified asthma, uncomplicated; K21.9 Gastro-esophageal reflux disease without esophagitis; M81.0 Age-related osteoporosis without current pathological fracture; E11.9 Type 2 diabetes mellitus without complications; F41.9 Anxiety disorder, unspecified; F32.9 Major depressive disorder, single episode, unspecified; Z79.82 Long term (current) use of aspirin; Z79.84 Long term (current) use of oral hypoglycemic drugs; Z79.899 Other long term (current) drug therapy

== ENCOUNTER → 2019-10-19 | Outpatient (CLI) | payer MEDICARE ==
[~2019-10-19] MED LIST changes: -ASPI81TA85 PO; +ASPI81TA86 PO; +OMEP40CA97 PO; +PARO30TA65 PO
[2019-10-19 17:46] LABS: PERCENT SATURATION 2.4 % (13.2-45.0)
--- NOTE | 2019-10-20 04:39 | REP ---
REASON: Dyspnea and COPD. COMPARISON: 07/27/2018, a portable examination and the latest prior. There are chronic basilar changes on the left greater than right, status quo. No acute patchy parenchymal opacities or pleural effusions have developed. There is no significant change in appearance of the cardiomediastinal silhouette. Once again, the cardiac silhouette is top size normal. There is no change in the osseous structures. IMPRESSION: Chronic changes, ss described above. Electronically Signed by Tejinder Quijano DO 10/20/2019 04:33 P
== END ==
LOC: M WUC 13:45
PROVIDERS: ATTEND Internal Medicine
DX: D64.9 Anemia, unspecified (principal); J44.9 Chronic obstructive pulmonary disease, unspecified; R06.00 Dyspnea, unspecified

== ENCOUNTER 2019-10-20 12:23 | Outpatient (CLI) | payer MEDICARE ==
[~2019-10-20] VITALS: Ht 162.6 cm; Wt 65.9 kg
[2019-10-20] VITALS (7 sets, daily range): BP systolic 123–143; BP diastolic 56–71
[~2019-10-20 12:23] MED LIST changes: +ACETAMINOPHEN TAB 650MG DOSE (2X325MG) PO SCH; -OMEP40CA97 PO; -PARO30TA65 PO; +diphenhydrAMINE 25MG CAP PO SCH
[2019-12-15] MEDS ORDERED: OMEP40CA97 PO (14:00)
[2019-12-15] MEDS ORDERED: PARO30TA65 PO (14:00)
== END 2019-10-20 17:10 | disposition home or self-care (01) ==
LOC: M INFU 12:23
PROVIDERS: ATTEND Internal Medicine
DX: D64.9 Anemia, unspecified (principal)
CPT/HCPCS: 36430; P9016

== ENCOUNTER → 2019-10-28 | Outpatient (REF) | payer MEDICARE ==
[~2019-10-28] MED LIST changes: -ACETAMINOPHEN TAB 650MG DOSE (2X325MG) PO SCH; +OMEP40CA97 PO; +PARO30TA65 PO; -diphenhydrAMINE 25MG CAP PO SCH
[2019-10-28 12:51] LABS: PERCENT SATURATION 6.8 % (13.2-45.0)
== END ==
LOC: M LAB REF 12:09
PROVIDERS: ATTEND Internal Medicine
DX: D64.9 Anemia, unspecified (principal)

== ENCOUNTER → 2019-10-31 | Outpatient (CLI) | payer SELFPAY | LOC: M LABSMTC 13:23 | PROVIDERS: ATTEND Pediatrics | DX: Z20.828 Contact with and (suspected) exposure to other viral communicable diseases (principal); Z11.59 Encounter for screening for other viral diseases ==

== ENCOUNTER → 2019-12-16 | Outpatient (CLI) | payer MEDICARE, SELFPAY | LOC: M LABSMTC 12:19 | PROVIDERS: ATTEND Anesthesiology | DX: Z01.818 Encounter for other preprocedural examination (principal); Z20.828 Contact with and (suspected) exposure to other viral communicable diseases | CPT/HCPCS: C9803; U0003 ==

== ENCOUNTER 2019-12-21 12:31 | Day surgery (SDC) | payer MEDICARE ==
[~2019-12-21] VITALS: Ht 162.6 cm; Wt 67.6 kg
[~2019-12-21 12:31] MED LIST changes: +LIDOCAINE 2% 100MG/5ML SDV (FOR ANES.) As Ordered ONE; +NS 1,000 ML IV ONE; +propofoL 200 MG/20 ML VIAL As Ordered ONE
--- NOTE | 2019-12-21 13:57 | ROOR ---
Patient Name: Ilene Crawford Procedure Date: 12/21/2019 1:38 PM Date of : 1935 Age: 83 Room: [facility] Gender: Female Note Status: Finalized Procedure: Upper Endoscopy + Biopsies Indications: Unexplained iron deficiency anemia Providers: Larry Stephen MD Referring MD: MICHAEL BRIDGES JR, MD Requesting Provider: Medicines: Monitored Anesthesia Care Complications: No immediate complications. Procedure: Pre-Anesthesia Assessment: - The heart rate, respiratory rate, oxygen saturations, blood pressure, adequacy of pulmonary ventilation, and response to care were monitored throughout the procedure. The Endoscope was introduced through the mouth, and advanced to the second part of duodenum. The upper GI endoscopy was accomplished without difficulty. The patient tolerated the procedure well. Findings: The Z-line was irregular and was found 25 cm from the incisors. Multiple biopsies were obtained with cold forceps for evaluation to rule out Schulz's Esophagus randomly at the gastroesophageal junction. A large hiatal hernia was present. No other significant abnormalities were identified in a careful examination of the stomach. The exam of the duodenum was otherwise normal. Biopsies for histology were taken with a cold forceps in the first portion of the duodenum for evaluation of celiac disease. The exam was otherwise without abnormality. Impression: - Z-line irregular, 25 cm from the incisors. - Large hiatal hernia. - The examination was otherwise normal. - Multiple biopsies were obtained at the gastroesophageal junction. - Biopsies were taken with a cold forceps for evaluation of celiac disease. - The examination was otherwise normal. Recommendation: - Patient has a contact number available for emergencies. The signs and symptoms of potential delayed complications were discussed with the patient. Return to normal activities tomorrow. Written discharge instructions were provided to the patient. - High fiber diet. - Discharge patient to home. - Follow an antireflux regimen. - Continue present medications. - Await pathology results. - Telephone GI clinic for pathology results in 1 week. - Return to referring physician. - The findings and recommendations were discussed with the patient. Larry Stephen MD Larry Stephen MD 12/21/2019 1:57:00 PM Electronically signed by Larry Stephen MD Number of Addenda: 0 Note Initiated On: 12/21/2019 1:38 PM Estimated Blood Loss: Estimated blood loss: none.
--- NOTE | 2019-12-21 14:04 | ROOR ---
Patient Name: Ilene Crawford Procedure Date: 12/21/2019 1:39 PM Date of : 1935 Age: 83 Room: [facility] Gender: Female Note Status: Finalized Procedure: Colonoscopy to Rectosigmoid-Aborted Procedure-Poor Prep Indications: Unexplained iron deficiency anemia Providers: Larry Stephen MD Referring MD: MICHAEL BRIDGES JR, MD Requesting Provider: Medicines: Monitored Anesthesia Care Complications: No immediate complications. Procedure: Pre-Anesthesia Assessment: - The heart rate, respiratory rate, oxygen saturations, blood pressure, adequacy of pulmonary ventilation, and response to care were monitored throughout the procedure. The Colonoscope was introduced through the anus with the intention of advancing to the cecum. The scope was advanced to the sigmoid colon before the procedure was aborted. Medications were given. The colonoscopy was aborted due to inadequate bowel prep. Findings: The perianal and digital rectal examinations were normal. Extensive amounts of semi-solid stool was found in the recto-sigmoid colon. The exam was otherwise without abnormality. Impression: - The procedure was aborted due to inadequate bowel prep. - Stool in the recto-sigmoid colon. - The examination was otherwise normal. - No specimens collected. - The exam was suboptimal due to patient preparation. - The procedure was aborted due to inadequate bowel prep. Recommendation: - Discharge patient to home. - Continue present medications. - Repeat colonoscopy because the bowel preparation was poor. - Return to referring physician. - The findings and recommendations were discussed with the patient. Larry Stephen MD Larry Stephen MD 12/21/2019 2:03:45 PM Electronically signed by Larry Stephen MD Number of Addenda: 0 Note Initiated On: 12/21/2019 1:39 PM Estimated Blood Loss: Estimated blood loss: none.
[2019-12-21 14:35] VITALS: BP 143/67
== END 2019-12-21 14:55 | disposition home or self-care (01) ==
LOC: M OPP 12:31
PROVIDERS: ATTEND Internal Medicine Gastroenterology
DX: D50.9 Iron deficiency anemia, unspecified (principal); K22.8 Other specified diseases of esophagus; K44.9 Diaphragmatic hernia without obstruction or gangrene; E11.9 Type 2 diabetes mellitus without complications; I10 Essential (primary) hypertension; K21.9 Gastro-esophageal reflux disease without esophagitis; E78.5 Hyperlipidemia, unspecified; J45.909 Unspecified asthma, uncomplicated; Z95.828 Presence of other vascular implants and grafts; Z79.82 Long term (current) use of aspirin; Z79.84 Long term (current) use of oral hypoglycemic drugs; Z79.899 Other long term (current) drug therapy

== ENCOUNTER → 2020-03-16 | Outpatient (REF) | payer MEDICARE ==
[~2020-03-16] MED LIST changes: -LIDOCAINE 2% 100MG/5ML SDV (FOR ANES.) As Ordered ONE; -NS 1,000 ML IV ONE; -propofoL 200 MG/20 ML VIAL As Ordered ONE
[2020-03-16 16:58] LABS: PERCENT SATURATION 4.8 % (13.2-45.0)
== END ==
LOC: M LAB REF 16:17
PROVIDERS: ATTEND Internal Medicine
DX: D50.9 Iron deficiency anemia, unspecified (principal)

== ENCOUNTER → 2020-05-21 | Outpatient (REF) | payer MEDICARE ==
[2020-05-21 19:09] LABS: PERCENT SATURATION 5.7 % (13.2-45.0)
== END ==
LOC: M LAB REF 16:39
PROVIDERS: ATTEND Internal Medicine
DX: D50.9 Iron deficiency anemia, unspecified (principal)

== ENCOUNTER → 2020-05-22 | Outpatient (REF) | payer MEDICARE | LOC: M LAB REF 16:17 | PROVIDERS: ATTEND Internal Medicine | DX: D50.9 Iron deficiency anemia, unspecified (principal) ==

== ENCOUNTER → 2020-05-23 | Outpatient (CLI) | payer MEDICARE ==
[~2020-05-23] VITALS: Ht 157.5 cm; Wt 65.4 kg
[~2020-05-23] MED LIST changes: +ACETAMINOPHEN TAB 650MG DOSE (2X325MG) PO SCH; +diphenhydrAMINE 25MG CAP PO SCH
[2020-05-23 09:05] VITALS: BP 116/58
[2020-05-23 10:20] VITALS: BP 93/53
[2020-05-23 11:20] VITALS: BP 102/55
[2020-05-23 12:30] VITALS: BP 108/62
[2020-05-23 13:30] VITALS: BP 111/57
[2020-05-23 14:45] VITALS: BP 122/56
== END ==
LOC: M INFU 09:05
PROVIDERS: ATTEND Internal Medicine
DX: D50.9 Iron deficiency anemia, unspecified (principal); Z88.8 Allergy status to other drugs, medicaments and biological substances
CPT/HCPCS: 36430; P9016

== ENCOUNTER 2020-05-29 09:22 | Outpatient (CLI) | payer MEDICARE ==
[~2020-05-29] VITALS: Ht 157.5 cm; Wt 70.0 kg
[~2020-05-29 09:22] MED LIST changes: -ACETAMINOPHEN TAB 650MG DOSE (2X325MG) PO SCH; -diphenhydrAMINE 25MG CAP PO SCH
[2020-05-29 09:45] VITALS: BP 153/76
[2020-05-29] MEDS ORDERED: IRON SUCROSE 25 MG in NS 25 ML IV ONE (10:00)
[2020-05-29] MEDS ORDERED: IRON SUCROSE 475 MG in NS 250 ML IV ONE (11:00)
[2020-05-29 11:15] VITALS: BP 134/68
[2020-05-29 12:18] VITALS: BP 138/71
[2020-05-29 13:20] VITALS: BP 132/66
[2020-05-29 14:35] VITALS: BP 144/78
== END 2020-05-29 14:40 | disposition home or self-care (01) ==
LOC: M INFU 09:22
PROVIDERS: ATTEND Internal Medicine
DX: D50.9 Iron deficiency anemia, unspecified (principal)
CPT/HCPCS: 96365; 96366; J1756

== ENCOUNTER → 2020-09-19 | Outpatient (REF) | payer MEDICARE ==
[2020-09-19 19:21] LABS: PERCENT SATURATION 14.5 % (13.2-45.0)
== END ==
LOC: M LAB REF 16:02
PROVIDERS: ATTEND Internal Medicine
DX: D50.9 Iron deficiency anemia, unspecified (principal)

== ENCOUNTER → 2021-01-18 | Outpatient (REF) | payer MEDICARE ==
[~2021-01-18] MED LIST changes: -LISI2.5T2 PO; +LISI2.5T9 PO; +OMEP40CA4 PO; -OMEP40CA97 PO
[2021-01-18 18:50] LABS: PERCENT SATURATION 22.5 % (13.2-45.0)
== END ==
LOC: M LAB REF 16:30
PROVIDERS: ATTEND Internal Medicine
DX: D50.9 Iron deficiency anemia, unspecified (principal)

== ENCOUNTER → 2021-03-22 | Outpatient (CLI) | payer MEDICARE ==
[~2021-03-22] MED LIST changes: -LEVO250T12 PO; +LEVO250T3 PO
== END ==
LOC: M RAD 09:27
PROVIDERS: ATTEND Surgery Vascular Surgery
DX: I71.4 Abdominal aortic aneurysm, without rupture (principal)

== ENCOUNTER → 2022-05-13 | Outpatient (CLI) | payer MEDICARE ==
[~2022-05-13] MED LIST changes: +ALBU2.5V10 INH; +ALBU6.7H6 INH; -ALBU83IN INH; +LEVO1TAB38 PO; -LEVO250T3 PO; -PAXI20TA29 PO; +PAXI20TA30 PO; -PROV108A INH
== END ==
LOC: M RAD 07:49
PROVIDERS: ATTEND Surgery Vascular Surgery
DX: I71.43 Infrarenal abdominal aortic aneurysm, without rupture (principal)

== ENCOUNTER 2023-05-01 09:37 | Observation (INO) | payer MEDICARE ==
[2023-05-01] MEDS ORDERED: methylPREDNISolone 125MG 2ML VIAL IV ONE (09:55)
[2023-05-01] MEDS ORDERED: NS 500 ML IV ONE (09:55)
[2023-05-01] MEDS ORDERED: NS 1,000 ML IV SCH (09:55)
[2023-05-01] MEDS ORDERED: IPRATROPIUM 0.5MG/ALBUTEROL 2.5MG INH SOL UD 3ML (DUONEB) NEB ONE (09:55)
[2023-05-01 10:43] LABS: BASO # 0.1 10^3/uL (0.0-0.2); BASO % 0.5 % (0.0-1.0); EOS # 0.1 10^3/uL (0.0-0.5); HEMOGLOBIN 12.2 g/dl (12.0-15.5); LYMPH # 2.8 10^3/uL (1.5-5.0); LYMPH % 27.5 % (24.0-44.0); MEAN CORPUSCULAR HEMOGLOBIN 31.1 pg (27.0-33.0); MEAN CORPUSCULAR HGB CONC 32.1 g/dl (32.0-36.5); MEAN CORPUSCULAR VOLUME 96.9 fl (80.0-96.0); MONO % 9.8 % (2.0-8.0); NEUTROPHILS # 6.2 10^3/uL (1.5-8.5); NEUTROPHILS % 60.7 % (36.0-66.0); PLATELET COUNT, AUTOMATED 286 10^3/uL (150-450); RED BLOOD COUNT 3.92 10^6/uL (4.00-5.40); WHITE BLOOD COUNT 10.2 10^3/uL (4.0-10.0)
[2023-05-01 10:56] LABS: INR 1.05; PROTHROMBIN TIME 13.4 SECONDS (12.5-14.5)
[2023-05-01 12:43] LABS: CK-MB VALUE MASS < 1.0 NG/ML (<3.6)
[2023-05-01 12:47] LABS: CPK CREATINE PHOSPHOKINASE 43 U/L (34-145); MB/CK RELATIVE INDEX 2.32 (< OR =4); THYROID STIMULATING HORMONE 1.482 uIU/ML (0.55-4.78); THYROXINE (T4) 7.1 UG/DL (4.5-10.9)
[2023-05-01 12:51] LABS: PROCALCITONIN 0.05 ng/ml
[2023-05-01 12:52] LABS: ALBUMIN 2.8 G/DL (3.2-5.2); ALKALINE PHOSPHATASE 82 U/L (46-116); ALT/SGPT 9 U/L (7.0-40); AST/SGOT 15 U/L (<34); BILIRUBIN,DIRECT 0.4 MG/DL (<0.4); BILIRUBIN,TOTAL 0.8 MG/DL (0.3-1.2); BLOOD UREA NITROGEN 14 MG/DL (9-23); CARBON DIOXIDE LEVEL 22 MMOL/L (20-31); CHLORIDE LEVEL 104 MMOL/L (98-107); CREATININE FOR GFR 1.09 MG/DL (0.55-1.30); GLOMERULAR FILTRATION RATE 50.4 (>32); GLUCOSE, FASTING 140 MG/DL (74-106); POTASSIUM SERUM 3.9 MMOL/L (3.5-5.1); SODIUM LEVEL 138 MMOL/L (136-145); TOTAL PROTEIN 6.8 G/DL (5.7-8.2)
[2023-05-01] MEDS ORDERED: MED REC IN PROGRESS XX SCH (14:40)
[2023-05-01] MEDS ORDERED: guaiFENesin 200 MG TAB PO PRN (15:55)
[2023-05-01] MEDS ORDERED: LEVALBUTEROL 1.25MG 0.5ML CONCENTRATE NEB INH PRN (15:55)
[2023-05-01] MEDS ORDERED: GLUCOSE 4GM CHEW TABLET PO PRN (16:20)
[2023-05-01] MEDS ORDERED: GLUCAGON INJ 1MG VIAL SC PRN (16:20)
[2023-05-01] MEDS ORDERED: DEXTROSE 50% 50ML SYRINGE IV PRN (16:20)
[2023-05-01] MEDS ORDERED: METF500T13 PO (17:20)
[2023-05-01] MEDS ORDERED: HOME MED LIST COMPLETE! XX SCH (17:30)
[2023-05-01] MEDS: PANTOPRAZOLE 40MG VIAL IV SCH (18:14)
[2023-05-01] MEDS: INSULIN LISPRO (NovoLOG) PER UNIT SC SCH ×2 (18:15→21:00)
[2023-05-01] MEDS: LISINOPRIL *2.5 MG* TAB PO SCH (18:26)
[2023-05-01] MEDS: SYMBICORT 160/4.5MCG INHALER 6GM INH SCH (19:38)
[2023-05-01] MEDS: LEVALBUTEROL 1.25MG 0.5ML CONCENTRATE NEB INH SCH (19:38)
[2023-05-01] MEDS: HEPARIN SOD (PORCINE) 5000UNITS/ML 1ML VIAL/SYRINGE SQ SCH (21:08)
[2023-05-01] MEDS: PARoxetine 20MG TABLET PO SCH (21:09)
[2023-05-01] MEDS: ATORVASTATIN 20 MG TAB PO SCH (21:09)
[2023-05-01] MEDS: CEFEPIME HCL 2 GM in D5W MINI-BAG PLUS 50 ML IV SCH (21:10)
[2023-05-01] MEDS: ACETAMINOPHEN TAB 650MG DOSE (2X325MG) PO PRN (21:24)
[2023-05-02] MEDS: LEVALBUTEROL 1.25MG 0.5ML CONCENTRATE NEB INH SCH ×4 (02:23→20:03)
[2023-05-02 06:27] LABS: BASO % 0.1 % (0.0-1.0); HEMATOCRIT 33.3 % (36.0-47.0); HEMOGLOBIN 10.8 g/dl (12.0-15.5); LYMPH # 0.7 10^3/uL (1.5-5.0); LYMPH % 6.4 % (24.0-44.0); MEAN CORPUSCULAR HEMOGLOBIN 31.4 pg (27.0-33.0); MEAN CORPUSCULAR HGB CONC 32.4 g/dl (32.0-36.5); MEAN CORPUSCULAR VOLUME 96.8 fl (80.0-96.0); MONO # 0.6 10^3/uL (0.0-0.8); MONO % 5.4 % (2.0-8.0); NEUTROPHILS # 9.9 10^3/uL (1.5-8.5); NEUTROPHILS % 87.7 % (36.0-66.0); PLATELET COUNT, AUTOMATED 263 10^3/uL (150-450); RED BLOOD COUNT 3.44 10^6/uL (4.00-5.40); WHITE BLOOD COUNT 11.3 10^3/uL (4.0-10.0)
[2023-05-02 07:01] LABS: CREATININE FOR GFR 0.94 MG/DL (0.55-1.30); GLOMERULAR FILTRATION RATE 59.8 (>32); MAGNESIUM LEVEL 1.4 MG/DL (1.8-2.4); POTASSIUM SERUM 4.3 MMOL/L (3.5-5.1)
[2023-05-02 07:03] LABS: HEMOGLOBIN A1c 5.8 % (4.0-6.0)
[2023-05-02] MEDS: INSULIN LISPRO (NovoLOG) PER UNIT SC SCH ×4 (07:52→21:00)
[2023-05-02] MEDS: CEFEPIME HCL 2 GM in D5W MINI-BAG PLUS 50 ML IV SCH (07:57)
[2023-05-02] MEDS: SYMBICORT 160/4.5MCG INHALER 6GM INH SCH ×2 (08:08→20:04)
[2023-05-02] MEDS: MAG SULF 1GM/100ML (MAG RUN) 100 ML IV SCH ×3 (09:17→11:38)
[2023-05-02] MEDS: PANTOPRAZOLE 40MG VIAL IV SCH (09:21)
[2023-05-02] MEDS: HEPARIN SOD (PORCINE) 5000UNITS/ML 1ML VIAL/SYRINGE SQ SCH ×2 (09:21→21:25)
[2023-05-02] MEDS: predniSONE 20 MG TAB PO SCH (09:22)
[2023-05-02 09:25] VITALS: BP 148/105
[2023-05-02] MEDS: atenoloL 25 MG TAB PO SCH (09:25)
[2023-05-02] MEDS: LISINOPRIL *2.5 MG* TAB PO SCH (09:26)
[2023-05-02 14:00] VITALS: BP 124/52; TEMP 97.2; O2SAT 100
[2023-05-02] MEDS: ACETAMINOPHEN TAB 650MG DOSE (2X325MG) PO PRN ×2 (14:45→21:24)
[2023-05-02 15:06] VITALS: O2SAT 99
[2023-05-02] MEDS: CEFDINIR 300 MG CAP (OMNICEF) PO SCH (21:23)
[2023-05-02] MEDS: PARoxetine 20MG TABLET PO SCH (21:24)
[2023-05-02] MEDS: ATORVASTATIN 20 MG TAB PO SCH (21:24)
[2023-05-03] MEDS: LEVALBUTEROL 1.25MG 0.5ML CONCENTRATE NEB INH SCH ×4 (01:23→19:24)
[2023-05-03 01:25] VITALS: O2SAT 96
[2023-05-03 06:23] VITALS: BP 117/59; TEMP 97.2; O2SAT 99
[2023-05-03] MEDS: INSULIN LISPRO (NovoLOG) PER UNIT SC SCH ×4 (07:30→21:00)
[2023-05-03] MEDS: SYMBICORT 160/4.5MCG INHALER 6GM INH SCH ×2 (07:47→19:25)
[2023-05-03] MEDS: atenoloL 25 MG TAB PO SCH (09:00)
[2023-05-03] MEDS: CEFDINIR 300 MG CAP (OMNICEF) PO SCH ×2 (09:55→21:00)
[2023-05-03] MEDS: LISINOPRIL *2.5 MG* TAB PO SCH (09:55)
[2023-05-03] MEDS: PANTOPRAZOLE 40MG TAB (PROTONIX) PO SCH (09:55)
[2023-05-03] MEDS: HEPARIN SOD (PORCINE) 5000UNITS/ML 1ML VIAL/SYRINGE SQ SCH ×2 (09:56→21:00)
[2023-05-03] MEDS: predniSONE 20 MG TAB PO SCH (09:56)
[2023-05-03] MEDS: PARoxetine 20MG TABLET PO SCH (21:00)
[2023-05-03] MEDS: ATORVASTATIN 20 MG TAB PO SCH (21:00)
[2023-05-04] MEDS: LEVALBUTEROL 1.25MG 0.5ML CONCENTRATE NEB INH SCH ×4 (02:13→20:10)
[2023-05-04 06:03] VITALS: BP 132/57; TEMP 97.5; O2SAT 99
[2023-05-04] MEDS: SYMBICORT 160/4.5MCG INHALER 6GM INH SCH ×2 (07:42→20:10)
[2023-05-04] MEDS: INSULIN LISPRO (NovoLOG) PER UNIT SC SCH ×4 (08:55→21:00)
[2023-05-04] MEDS: LISINOPRIL *2.5 MG* TAB PO SCH (09:52)
[2023-05-04] MEDS: CEFDINIR 300 MG CAP (OMNICEF) PO SCH ×2 (09:52→20:57)
[2023-05-04] MEDS: HEPARIN SOD (PORCINE) 5000UNITS/ML 1ML VIAL/SYRINGE SQ SCH ×2 (09:53→20:58)
[2023-05-04] MEDS: predniSONE 20 MG TAB PO SCH (09:53)
[2023-05-04] MEDS: atenoloL 25 MG TAB PO SCH (09:53)
[2023-05-04] MEDS: PANTOPRAZOLE 40MG TAB (PROTONIX) PO SCH (09:53)
[2023-05-04] MEDS: ACETAMINOPHEN TAB 650MG DOSE (2X325MG) PO PRN (12:57)
[2023-05-04] MEDS: PARoxetine 20MG TABLET PO SCH (20:57)
[2023-05-04] MEDS: ATORVASTATIN 20 MG TAB PO SCH (20:57)
[2023-05-04 21:19] VITALS: BP 127/57; TEMP 97.5; O2SAT 92
[2023-05-05] MEDS: LEVALBUTEROL 1.25MG 0.5ML CONCENTRATE NEB INH SCH ×3 (01:44→13:07)
[2023-05-05 04:10] VITALS: BP 128/59; TEMP 97.3; O2SAT 100
[2023-05-05] MEDS: SYMBICORT 160/4.5MCG INHALER 6GM INH SCH (07:39)
[2023-05-05] MEDS: PANTOPRAZOLE 40MG TAB (PROTONIX) PO SCH (08:36)
[2023-05-05] MEDS: atenoloL 25 MG TAB PO SCH (08:36)
[2023-05-05] MEDS: CEFDINIR 300 MG CAP (OMNICEF) PO SCH (08:36)
[2023-05-05] MEDS: predniSONE 20 MG TAB PO SCH (08:36)
[2023-05-05] MEDS: LISINOPRIL *2.5 MG* TAB PO SCH (08:36)
[2023-05-05] MEDS: INSULIN LISPRO (NovoLOG) PER UNIT SC SCH ×2 (08:38→12:23)
[2023-05-05] MEDS: HEPARIN SOD (PORCINE) 5000UNITS/ML 1ML VIAL/SYRINGE SQ SCH (08:38)
[2023-05-05] MEDS ORDERED: PANT40TA29 PO (13:32)
[2023-05-05] MEDS ORDERED: PRED10TA2 PO (13:32)
== END 2023-05-05 16:27 | disposition home or self-care (01) ==
LOC: M ED 09:37 → EDBD 09:37 → M ED INP 15:16 → EEVIPCON 15:16 → ENRESERV 05-02 13:16 → M MSPAV 05-02 13:59
PROVIDERS: ADMIT Internal Medicine; ATTEND Internal Medicine
DX: R06.00 Dyspnea, unspecified (principal); J45.909 Unspecified asthma, uncomplicated; B97.29 Other coronavirus as the cause of diseases classified elsewhere; J96.11 Chronic respiratory failure with hypoxia; Z99.81 Dependence on supplemental oxygen; J90 Pleural effusion, not elsewhere classified; N39.0 Urinary tract infection, site not specified; R00.0 Tachycardia, unspecified; Z20.828 Contact with and (suspected) exposure to other viral communicable diseases; R30.0 Dysuria; I12.9 Hypertensive chronic kidney disease with stage 1 through stage 4 chronic kidney disease, or unspecified chronic kidney disease; E78.5 Hyperlipidemia, unspecified; N18.30 Chronic kidney disease, stage 3 unspecified; E11.9 Type 2 diabetes mellitus without complications; F41.9 Anxiety disorder, unspecified; R53.1 Weakness; Z91.81 History of falling; K21.9 Gastro-esophageal reflux disease without esophagitis; K44.9 Diaphragmatic hernia without obstruction or gangrene; Z86.79 Personal history of other diseases of the circulatory system; Z79.899 Other long term (current) drug therapy; Z79.51 Long term (current) use of inhaled steroids; Z79.84 Long term (current) use of oral hypoglycemic drugs
CPT/HCPCS: 36415; 71045; 80048; 80076; 81001; 82550; 82553; 83036; 83520; 83605; 83735; 83880; 84145; 84436; 84443; 84484; 85025; 85610; 86140; 87040; 87086; 87486; 87581; 87633; 87798; 93005; 93041; 94640; 94760; 96361; 96365; 96367; 96372; 96375; 96376; 97110; 97116; 97161; 97165; 97530; 97535; 99285; C9113; G0378; J0692; J1815; J2930; J3475; J7512

== ENCOUNTER 2023-05-16 21:17 | Inpatient (IN) | payer MEDICARE ==
[~2023-05-16] VITALS: Ht 157.5 cm; Wt 67.9 kg
[~2023-05-16 21:17] MED LIST changes: +PANT40TA29 PO; +PRED10TA2 PO
[2023-05-16] MEDS: METOCLOPRAMIDE INJ 10MG/2ML VIAL IV ONE (21:53)
[2023-05-16 21:54] LABS: BASO % 0.2 % (0.0-1.0); EOS # 0.2 10^3/uL (0.0-0.5); EOS % 1.1 % (0.0-3.0); HEMATOCRIT 39.3 % (36.0-47.0); HEMOGLOBIN 12.7 g/dl (12.0-15.5); LYMPH # 1.3 10^3/uL (1.5-5.0); LYMPH % 8.9 % (24.0-44.0); MEAN CORPUSCULAR HEMOGLOBIN 31.8 pg (27.0-33.0); MEAN CORPUSCULAR HGB CONC 32.3 g/dl (32.0-36.5); MEAN CORPUSCULAR VOLUME 98.3 fl (80.0-96.0); MONO % 7.2 % (2.0-8.0); NEUTROPHILS # 11.4 10^3/uL (1.5-8.5); NEUTROPHILS % 80.1 % (36.0-66.0); PLATELET COUNT, AUTOMATED 166 10^3/uL (150-450); WHITE BLOOD COUNT 14.2 10^3/uL (4.0-10.0)
[2023-05-16 22:23] LABS: CK-MB VALUE MASS < 1.0 NG/ML (<3.6)
[2023-05-16 22:25] LABS: ALBUMIN 2.9 G/DL (3.2-5.2); ALKALINE PHOSPHATASE 53 U/L (46-116); ALT/SGPT 22 U/L (7.0-40); AST/SGOT 16 U/L (<34); BILIRUBIN,DIRECT 0.2 MG/DL (<0.4); BILIRUBIN,TOTAL 0.6 MG/DL (0.3-1.2); BLOOD UREA NITROGEN 30 MG/DL (9-23); CALCIUM LEVEL 8.2 MG/DL (8.3-10.6); CARBON DIOXIDE LEVEL 23 MMOL/L (20-31); CHLORIDE LEVEL 105 MMOL/L (98-107); CREATININE FOR GFR 1.31 MG/DL (0.55-1.30); GLOMERULAR FILTRATION RATE 40.8 (>32); GLUCOSE, FASTING 166 MG/DL (74-106); POTASSIUM SERUM 4.6 MMOL/L (3.5-5.1); SODIUM LEVEL 138 MMOL/L (136-145); TOTAL PROTEIN 6.1 G/DL (5.7-8.2)
[2023-05-16 22:26] LABS: RSV AMPLIFICATION NEGATIVE (NEGATIVE)
[2023-05-16 22:30] LABS: CPK CREATINE PHOSPHOKINASE 25 U/L (34-145)
[2023-05-16] MEDS ORDERED: ISOVUE-370 76% 100ML VIAL As Ordered ONE (22:34)
[2023-05-16 23:01] LABS: AMPHETAMINES LEVEL URINE NEGATIVE (NEGATIVE); BARBITURATES URINE NEGATIVE (NEGATIVE); BENZODIAZEPINES URINE NEGATIVE (NEGATIVE)
[2023-05-16 23:02] LABS: CANNABINOIDS URINE NEGATIVE (NEGATIVE); COCAINE METABOLITE URINE NEGATIVE (NEGATIVE); METHADONE URINE NEGATIVE (NEGATIVE); OPIATES URINE NEGATIVE (NEGATIVE); PHENCYCLIDINE URINE NEGATIVE (NEGATIVE)
[2023-05-16 23:16] LABS: CK-MB VALUE MASS < 1.0 NG/ML (<3.6)
[2023-05-16] MEDS: cefTRIAXone SOD 2 GM in D5W MINI-BAG PLUS 50 ML IV ONE (23:22)
[2023-05-16 23:23] LABS: CPK CREATINE PHOSPHOKINASE 27 U/L (34-145)
[2023-05-16] MEDS: NS 500 ML IV ONE (23:23)
[2023-05-16] MEDS ORDERED: PANT-23 PO (23:56)
[2023-05-17] VITALS (7 sets, daily range): BP systolic 104–121; BP diastolic 53–59; TEMP 97.2–97.4; O2SAT 97–100
[2023-05-17] MEDS ORDERED: HOME MED LIST COMPLETE! XX SCH
[2023-05-17] MEDS ORDERED: HEPARIN DRIP 25,000 UNITS in IV 1 EA IV SCH (01:30)
[2023-05-17] MEDS ORDERED: HEPARIN SOD (PORCINE) 5000UNITS/ML 1ML VIAL/SYRINGE IV PRN (01:30)
[2023-05-17] MEDS ORDERED: GLUCAGON INJ 1MG VIAL SC PRN (01:40)
[2023-05-17] MEDS ORDERED: GLUCOSE 4GM CHEW TABLET PO PRN (01:40)
[2023-05-17] MEDS ORDERED: DEXTROSE 50% 50ML SYRINGE IV PRN (01:40)
[2023-05-17 01:43] LABS: ABG BASE EXCESS -5.6 (-2.0-2.0); ABG HCO3 19.4 MMOL/L (22.0-26.0); ABG O2 SATURATION 98.5 % (95.0-99.0); ABG PARTIAL PRESSURE CO2 36.6 mmHg (35.0-45.0); ABG PARTIAL PRESSURE O2 130.3 mmHg (75.0-100.0); ABG STANDARD HCO3 19.9 MMOL/L. (22.0-26.0); ABG TOTAL CO2 20.6 MMOL/L (23.0-31.0); ABG pH (ARTERIAL) 7.343 UNITS (7.350-7.450)
[2023-05-17 03:07] LABS: HEMATOCRIT 36.9 % (36.0-47.0); HEMOGLOBIN 11.7 g/dl (12.0-15.5); MEAN CORPUSCULAR HEMOGLOBIN 31.6 pg (27.0-33.0); MEAN CORPUSCULAR HGB CONC 31.7 g/dl (32.0-36.5); MEAN CORPUSCULAR VOLUME 99.7 fl (80.0-96.0); PLATELET COUNT, AUTOMATED 143 10^3/uL (150-450); WHITE BLOOD COUNT 14.8 10^3/uL (4.0-10.0)
[2023-05-17 03:19] LABS: INR 1.17; PROTHROMBIN TIME 14.5 SECONDS (12.5-14.5)
[2023-05-17 03:20] LABS: PARTIAL THROMBOPLASTIN TIME 21.5 SECONDS (24.8-34.2)
[2023-05-17] MEDS: INSULIN LISPRO (NovoLOG) PER UNIT SC SCH ×3 (06:00→22:05)
[2023-05-17 06:58] LABS: HEMATOCRIT 34.9 % (36.0-47.0); HEMOGLOBIN 11.1 g/dl (12.0-15.5); MEAN CORPUSCULAR HEMOGLOBIN 31.8 pg (27.0-33.0); MEAN CORPUSCULAR HGB CONC 31.8 g/dl (32.0-36.5); PLATELET COUNT, AUTOMATED 138 10^3/uL (150-450); RED BLOOD COUNT 3.49 10^6/uL (4.00-5.40); WHITE BLOOD COUNT 14.3 10^3/uL (4.0-10.0)
[2023-05-17 07:26] LABS: CALCIUM LEVEL 7.4 MG/DL (8.3-10.6); CREATININE FOR GFR 1.21 MG/DL (0.55-1.30); GLOMERULAR FILTRATION RATE 44.7 (>32); MAGNESIUM LEVEL 1.2 MG/DL (1.8-2.4)
[2023-05-17] MEDS: DOCUSATE SODIUM 100MG CAPSULE PO SCH (12:43)
[2023-05-17] MEDS: METOPROLOL TART 12.5 MG PER 1/2 TAB PO SCH ×2 (12:44→17:54)
[2023-05-17] MEDS ORDERED: LEVALBUTEROL 1.25MG 0.5ML CONCENTRATE NEB INH PRN (13:45)
[2023-05-17] MEDS: MAG SULF 1GM/100ML (MAG RUN) 1 GM in IV 1 EA IV SCH (15:22)
[2023-05-17] MEDS: PANTOPRAZOLE 40MG TAB (PROTONIX) PO SCH (15:22)
[2023-05-17] MEDS: SYMBICORT 160/4.5MCG INHALER 6GM INH SCH (19:52)
[2023-05-17] MEDS: PARoxetine 20MG TABLET PO SCH (22:05)
[2023-05-17] MEDS: APIXABAN 5 MG TAB (ELIQUIS) PO SCH (22:05)
[2023-05-17] MEDS: ATORVASTATIN 20 MG TAB PO SCH (22:05)
[2023-05-17] MEDS: cefTRIAXone SOD 1 GM in D5W MINI-BAG PLUS 50 ML IV SCH (22:10)
[2023-05-18] VITALS (12 sets, daily range): BP systolic 107–141; BP diastolic 56–65; TEMP 96.2–97.2; O2SAT 96–100
[2023-05-18 04:59] LABS: HEMATOCRIT 35.2 % (36.0-47.0); HEMOGLOBIN 11.2 g/dl (12.0-15.5); MEAN CORPUSCULAR HEMOGLOBIN 31.7 pg (27.0-33.0); MEAN CORPUSCULAR HGB CONC 31.8 g/dl (32.0-36.5); MEAN CORPUSCULAR VOLUME 99.7 fl (80.0-96.0); PLATELET COUNT, AUTOMATED 137 10^3/uL (150-450); RED BLOOD COUNT 3.53 10^6/uL (4.00-5.40); WHITE BLOOD COUNT 8.9 10^3/uL (4.0-10.0)
[2023-05-18 05:20] LABS: INR 1.11
[2023-05-18 05:27] LABS: ALBUMIN 2.4 G/DL (3.2-5.2); BILIRUBIN,TOTAL 0.5 MG/DL (0.3-1.2); CHOLESTEROL RISK RATIO 2.23 (<5); CREATININE FOR GFR 1.17 MG/DL (0.55-1.30); GLOMERULAR FILTRATION RATE 46.5 (>32); HDL CHOLESTEROL 60.4 MG/DL (>40); LDL CHOLESTEROL 30.4 MG/DL (<100); MAGNESIUM LEVEL 2.2 MG/DL (1.8-2.4); NON-HDL-C 74.6 MG/DL; POTASSIUM SERUM 4.6 MMOL/L (3.5-5.1); TOTAL PROTEIN 5.3 G/DL (5.7-8.2)
[2023-05-18] MEDS: METOPROLOL TART 25 MG TABLET PO SCH (10:58)
[2023-05-19 00:50] VITALS: BP 117/59; TEMP 97.5; O2SAT 100
[2023-05-19 06:00] VITALS: BP 123/60; TEMP 97.7; O2SAT 100
[2023-05-19 06:07] LABS: BASO % 0.6 % (0.0-1.0); EOS # 0.3 10^3/uL (0.0-0.5); EOS % 4.9 % (0.0-3.0); HEMATOCRIT 34.8 % (36.0-47.0); HEMOGLOBIN 10.9 g/dl (12.0-15.5); MEAN CORPUSCULAR HEMOGLOBIN 31.5 pg (27.0-33.0); MEAN CORPUSCULAR HGB CONC 31.3 g/dl (32.0-36.5); MEAN CORPUSCULAR VOLUME 100.6 fl (80.0-96.0); MONO # 0.6 10^3/uL (0.0-0.8); MONO % 8.1 % (2.0-8.0); NEUTROPHILS # 4.7 10^3/uL (1.5-8.5); PLATELET COUNT, AUTOMATED 140 10^3/uL (150-450); RED BLOOD COUNT 3.46 10^6/uL (4.00-5.40); WHITE BLOOD COUNT 6.8 10^3/uL (4.0-10.0)
[2023-05-19 06:16] LABS: INR 1.47; PROTHROMBIN TIME 17.4 SECONDS (12.5-14.5)
[2023-05-19 06:29] LABS: CALCIUM LEVEL 7.8 MG/DL (8.3-10.6); CREATININE FOR GFR 1.04 MG/DL (0.55-1.30); GLOMERULAR FILTRATION RATE 53.2 (>32); POTASSIUM SERUM 4.4 MMOL/L (3.5-5.1)
[2023-05-19] MEDS ORDERED: MEROPENEM INJ 1 GM in IV 1 EA IV SCH (10:25)
[2023-05-19] MEDS: NYSTATIN 100,000 UNITS/GM TOPICAL PWD 15GM TOP SCH (13:39)
[2023-05-19 14:00] VITALS: BP 129/56; TEMP 97.3; O2SAT 93
[2023-05-19 21:14] VITALS: BP 130/60; TEMP 97.9; O2SAT 98
[2023-05-20 05:59] LABS: INR 1.53; PROTHROMBIN TIME 17.9 SECONDS (12.5-14.5)
[2023-05-20 06:00] VITALS: BP 122/60; TEMP 98.1; O2SAT 100
[2023-05-20 08:04] LABS: BASO % 0.5 % (0.0-1.0); EOS # 0.3 10^3/uL (0.0-0.5); EOS % 4.5 % (0.0-3.0); HEMATOCRIT 34.4 % (36.0-47.0); HEMOGLOBIN 10.6 g/dl (12.0-15.5); LYMPH # 1.3 10^3/uL (1.5-5.0); LYMPH % 20.9 % (24.0-44.0); MEAN CORPUSCULAR HEMOGLOBIN 31.1 pg (27.0-33.0); MEAN CORPUSCULAR HGB CONC 30.8 g/dl (32.0-36.5); MEAN CORPUSCULAR VOLUME 100.9 fl (80.0-96.0); MONO # 0.7 10^3/uL (0.0-0.8); MONO % 11.3 % (2.0-8.0); NEUTROPHILS # 3.7 10^3/uL (1.5-8.5); NEUTROPHILS % 60.5 % (36.0-66.0); PLATELET COUNT, AUTOMATED 148 10^3/uL (150-450); RED BLOOD COUNT 3.41 10^6/uL (4.00-5.40); WHITE BLOOD COUNT 6.2 10^3/uL (4.0-10.0)
[2023-05-20 08:15] LABS: CALCIUM LEVEL 7.9 MG/DL (8.3-10.6); CREATININE FOR GFR 0.94 MG/DL (0.55-1.30); GLOMERULAR FILTRATION RATE 59.8 (>32); MAGNESIUM LEVEL 1.5 MG/DL (1.8-2.4); POTASSIUM SERUM 4.3 MMOL/L (3.5-5.1)
[2023-05-20] MEDS: MAG SULF 1GM/100ML (MAG RUN) 1 GM in IV 1 EA IV SCH (11:00)
[2023-05-20] MEDS: ACETAMINOPHEN TAB 650MG DOSE (2X325MG) PO PRN (11:05)
[2023-05-20 14:00] VITALS: BP 125/74; TEMP 97.7; O2SAT 98
[2023-05-20 22:00] VITALS: BP 113/62; TEMP 98.6; O2SAT 98
[2023-05-21 06:00] VITALS: BP 121/59; TEMP 96.7; O2SAT 100
[2023-05-21 06:49] LABS: BASO % 0.5 % (0.0-1.0); EOS # 0.4 10^3/uL (0.0-0.5); EOS % 6.1 % (0.0-3.0); HEMATOCRIT 33.4 % (36.0-47.0); HEMOGLOBIN 10.5 g/dl (12.0-15.5); LYMPH # 1.3 10^3/uL (1.5-5.0); LYMPH % 22.1 % (24.0-44.0); MEAN CORPUSCULAR HEMOGLOBIN 31.3 pg (27.0-33.0); MEAN CORPUSCULAR HGB CONC 31.4 g/dl (32.0-36.5); MEAN CORPUSCULAR VOLUME 99.7 fl (80.0-96.0); MONO # 0.6 10^3/uL (0.0-0.8); MONO % 9.9 % (2.0-8.0); NEUTROPHILS # 3.5 10^3/uL (1.5-8.5); NEUTROPHILS % 59.5 % (36.0-66.0); PLATELET COUNT, AUTOMATED 154 10^3/uL (150-450); RED BLOOD COUNT 3.35 10^6/uL (4.00-5.40); WHITE BLOOD COUNT 5.9 10^3/uL (4.0-10.0)
[2023-05-21 07:13] LABS: BLOOD UREA NITROGEN 16 MG/DL (9-23); CALCIUM LEVEL 7.8 MG/DL (8.3-10.6); CARBON DIOXIDE LEVEL 26 MMOL/L (20-31); CHLORIDE LEVEL 106 MMOL/L (98-107); GLOMERULAR FILTRATION RATE > 60.0 (>32); GLUCOSE, FASTING 105 MG/DL (74-106); MAGNESIUM LEVEL 1.7 MG/DL (1.8-2.4); POTASSIUM SERUM 4.2 MMOL/L (3.5-5.1); SODIUM LEVEL 138 MMOL/L (136-145)
[2023-05-21] MEDS: MAG SULF 1GM/100ML (MAG RUN) 1 GM in IV 1 EA IV ONE (08:00)
[2023-05-21] MEDS: MAGNESIUM OXIDE 400MG TAB (MAG-OX) PO SCH (08:01)
[2023-05-21 14:00] VITALS: BP 113/57; TEMP 97.7; O2SAT 99
[2023-05-21 20:15] VITALS: BP 116/61; TEMP 97.7; O2SAT 99
[2023-05-22 04:36] VITALS: BP 134/64; TEMP 97.5; O2SAT 100
[2023-05-22 06:25] LABS: BASO % 0.6 % (0.0-1.0); EOS # 0.3 10^3/uL (0.0-0.5); EOS % 6.2 % (0.0-3.0); HEMATOCRIT 33.6 % (36.0-47.0); HEMOGLOBIN 10.4 g/dl (12.0-15.5); LYMPH # 1.2 10^3/uL (1.5-5.0); LYMPH % 25.7 % (24.0-44.0); MEAN CORPUSCULAR HEMOGLOBIN 31.1 pg (27.0-33.0); MEAN CORPUSCULAR VOLUME 100.6 fl (80.0-96.0); MONO # 0.5 10^3/uL (0.0-0.8); MONO % 9.9 % (2.0-8.0); NEUTROPHILS # 2.6 10^3/uL (1.5-8.5); NEUTROPHILS % 55.7 % (36.0-66.0); PLATELET COUNT, AUTOMATED 161 10^3/uL (150-450); RED BLOOD COUNT 3.34 10^6/uL (4.00-5.40); WHITE BLOOD COUNT 4.7 10^3/uL (4.0-10.0)
[2023-05-22 06:49] LABS: CALCIUM LEVEL 7.9 MG/DL (8.3-10.6); CREATININE FOR GFR 0.94 MG/DL (0.55-1.30); GLOMERULAR FILTRATION RATE 59.8 (>32); MAGNESIUM LEVEL 1.8 MG/DL (1.8-2.4); POTASSIUM SERUM 4.8 MMOL/L (3.5-5.1)
[2023-05-22 14:00] VITALS: BP 112/61; TEMP 97.7; O2SAT 99
[2023-05-22 19:59] VITALS: BP 115/58; TEMP 97.5; O2SAT 98
[2023-05-23 06:00] VITALS: BP 106/58; TEMP 97.7; O2SAT 99
[2023-05-23 06:16] LABS: BASO % 0.8 % (0.0-1.0); EOS # 0.3 10^3/uL (0.0-0.5); EOS % 6.1 % (0.0-3.0); HEMATOCRIT 31.7 % (36.0-47.0); HEMOGLOBIN 9.9 g/dl (12.0-15.5); LYMPH # 1.4 10^3/uL (1.5-5.0); LYMPH % 28.9 % (24.0-44.0); MEAN CORPUSCULAR HEMOGLOBIN 31.3 pg (27.0-33.0); MEAN CORPUSCULAR HGB CONC 31.2 g/dl (32.0-36.5); MEAN CORPUSCULAR VOLUME 100.3 fl (80.0-96.0); MONO # 0.5 10^3/uL (0.0-0.8); MONO % 10.1 % (2.0-8.0); NEUTROPHILS # 2.5 10^3/uL (1.5-8.5); NEUTROPHILS % 52.2 % (36.0-66.0); PLATELET COUNT, AUTOMATED 166 10^3/uL (150-450); RED BLOOD COUNT 3.16 10^6/uL (4.00-5.40); WHITE BLOOD COUNT 4.8 10^3/uL (4.0-10.0)
[2023-05-23 06:28] LABS: BLOOD UREA NITROGEN 14 MG/DL (9-23); CALCIUM LEVEL 7.4 MG/DL (8.3-10.6); CARBON DIOXIDE LEVEL 29 MMOL/L (20-31); CHLORIDE LEVEL 107 MMOL/L (98-107); CREATININE FOR GFR 0.87 MG/DL (0.55-1.30); GLOMERULAR FILTRATION RATE > 60.0 (>32); GLUCOSE, FASTING 105 MG/DL (74-106); MAGNESIUM LEVEL 1.6 MG/DL (1.8-2.4); POTASSIUM SERUM 4.1 MMOL/L (3.5-5.1); SODIUM LEVEL 139 MMOL/L (136-145)
[2023-05-23 07:21] VITALS: BP 132/55
[2023-05-23] MEDS: MAGNESIUM OXIDE 400MG TAB (MAG-OX) PO SCH (07:39)
[2023-05-23] MEDS: MAG SULF 1GM/100ML (MAG RUN) 1 GM in IV 1 EA IV ONE (07:39)
[2023-05-23] MEDS ORDERED: MAGN400T2 PO (10:07)
[2023-05-23] MEDS ORDERED: ELIQ5TAB PO (10:07)
[2023-05-23] MEDS ORDERED: METO1TAB87 PO (10:07)
== END 2023-05-23 11:22 | disposition left against medical advice (07) | DRG 71 ==
LOC: EDBD 21:17 → M ED 21:17 → M ED INP 23:50 → EEVIPCON 23:50 → M PCU 05-17 16:39 → M MSPAV 05-19 00:46
PROVIDERS: ADMIT Family Medicine; ATTEND Internal Medicine
PROC: B246ZZZ Ultrasonography of Right and Left Heart (ICD-10-PCS; principal; 2023-05-19)
DX: G93.41 Metabolic encephalopathy (principal); J96.11 Chronic respiratory failure with hypoxia; G45.9 Transient cerebral ischemic attack, unspecified; I48.91 Unspecified atrial fibrillation; N18.30 Chronic kidney disease, stage 3 unspecified; I12.9 Hypertensive chronic kidney disease with stage 1 through stage 4 chronic kidney disease, or unspecified chronic kidney disease; E11.22 Type 2 diabetes mellitus with diabetic chronic kidney disease; E78.5 Hyperlipidemia, unspecified; J45.909 Unspecified asthma, uncomplicated; K21.9 Gastro-esophageal reflux disease without esophagitis; R82.71 Bacteriuria; K44.9 Diaphragmatic hernia without obstruction or gangrene; F32.A Depression, unspecified; F41.9 Anxiety disorder, unspecified; Z98.41 Cataract extraction status, right eye; Z98.42 Cataract extraction status, left eye; Z90.49 Acquired absence of other specified parts of digestive tract; Z79.84 Long term (current) use of oral hypoglycemic drugs; Z79.899 Other long term (current) drug therapy; Z20.822 Contact with and (suspected) exposure to COVID-19; Z99.81 Dependence on supplemental oxygen; E83.42 Hypomagnesemia

== ENCOUNTER → 2023-10-29 | Outpatient (CLI) | payer MEDICARE ==
[~2023-10-29] MED LIST changes: +ELIQ5TAB PO; +MAGN400T2 PO; +METO1TAB87 PO; +PANT-23 PO
[2023-10-29 18:05] LABS: BASO # 0.1 10^3/uL (0.0-0.2); BASO % 0.8 % (0.0-1.0); EOS # 0.2 10^3/uL (0.0-0.5); EOS % 1.9 % (0.0-3.0); HEMATOCRIT 38.5 % (36.0-47.0); HEMOGLOBIN 12.1 g/dl (12.0-15.5); LYMPH # 2.5 10^3/uL (1.5-5.0); LYMPH % 23.1 % (24.0-44.0); MEAN CORPUSCULAR HGB CONC 31.4 g/dl (32.0-36.5); MEAN CORPUSCULAR VOLUME 98.7 fl (80.0-96.0); MONO # 0.7 10^3/uL (0.0-0.8); MONO % 6.1 % (2.0-8.0); NEUTROPHILS # 7.3 10^3/uL (1.5-8.5); NEUTROPHILS % 67.5 % (36.0-66.0); PLATELET COUNT, AUTOMATED 268 10^3/uL (150-450); WHITE BLOOD COUNT 10.9 10^3/uL (4.0-10.0)
[2023-10-29 18:06] LABS: THYROXINE (T4) 5.3 UG/DL (4.5-10.9)
[2023-10-29 18:07] LABS: THYROID STIMULATING HORMONE 3.25 uIU/ML (0.55-4.78)
[2023-10-29 18:08] LABS: FOLATE 5.1 NG/ML (>5.4)
[2023-10-29 18:13] LABS: ALBUMIN 3.5 G/DL (3.2-5.2); BILIRUBIN,TOTAL 1.2 MG/DL (0.3-1.2); CALCIUM LEVEL 6.3 MG/DL (8.3-10.6); CREATININE FOR GFR 1.85 MG/DL (0.55-1.30); GLOMERULAR FILTRATION RATE 27.4 (>32); POTASSIUM SERUM 3.5 MMOL/L (3.5-5.1)
[2023-10-29 19:11] LABS: FREE THYROXINE INDEX 2.1 % (1.3-4.8); T UPTAKE 39.2 % (22.5-37.0)
== END ==
LOC: M WUC 13:24
PROVIDERS: ATTEND Psychiatry & Neurology Neurology
DX: R41.3 Other amnesia (principal); E07.9 Disorder of thyroid, unspecified; D51.0 Vitamin B12 deficiency anemia due to intrinsic factor deficiency

== ENCOUNTER 2023-11-09 12:43 | Inpatient (IN) | payer MEDICARE ==
[~2023-11-09] VITALS: Ht 167.6 cm; Wt 64.2 kg
[2023-11-09 14:54] LABS: VENOUS BASE EXCESS -1.9 (-2.0-2.0); VENOUS HCO3 23.2 MMOL/L (23.0-27.0); VENOUS O2 SATURATION 63.8 % (60.0-80.0); VENOUS PARTIAL PRESSURE CO2 40.7 mmHg (38.0-50.0); VENOUS PARTIAL PRESSURE O2 35.3 mmHg (30.0-50.0); VENOUS PH 7.373 UNITS (7.330-7.430); VENOUS STANDARD HCO3 22.1 MMOL/L; VENOUS TOTAL CO2 24.4 MMOL/L (24.0-28.0)
[2023-11-09 15:05] LABS: BASO # 0.1 10^3/uL (0.0-0.2); BASO % 0.4 % (0.0-1.0); EOS # 0.1 10^3/uL (0.0-0.5); EOS % 0.3 % (0.0-3.0); HEMATOCRIT 37.1 % (36.0-47.0); HEMOGLOBIN 12.2 g/dl (12.0-15.5); LYMPH # 1.6 10^3/uL (1.5-5.0); MEAN CORPUSCULAR HEMOGLOBIN 31.7 pg (27.0-33.0); MEAN CORPUSCULAR HGB CONC 32.9 g/dl (32.0-36.5); MEAN CORPUSCULAR VOLUME 96.4 fl (80.0-96.0); MONO % 5.5 % (2.0-8.0); NEUTROPHILS % 83.7 % (36.0-66.0); PLATELET COUNT, AUTOMATED 235 10^3/uL (150-450); RED BLOOD COUNT 3.85 10^6/uL (4.00-5.40)
[2023-11-09 15:17] LABS: INR 2.19; PARTIAL THROMBOPLASTIN TIME 30.4 SECONDS (24.8-34.2); PROTHROMBIN TIME 23.5 SECONDS (12.5-14.5)
[2023-11-09 15:36] LABS: C REACTIVE PROTEIN QUANTITATIV 15.3 MG/DL (<1.0)
[2023-11-09 15:44] LABS: ALBUMIN 3.2 G/DL (3.2-5.2); BILIRUBIN,DIRECT 0.9 MG/DL (<0.4); CALCIUM LEVEL 5.2 MG/DL (8.3-10.6); CK-MB VALUE MASS 2.4 NG/ML (<3.6); CREATININE FOR GFR 2.06 MG/DL (0.55-1.30); FREE T4 1.54 NG/DL (0.89-1.76); GLOMERULAR FILTRATION RATE 24.2 (>32); MB/CK RELATIVE INDEX 1.04 (< OR =4); POTASSIUM SERUM 3.3 MMOL/L (3.5-5.1); THYROID STIMULATING HORMONE 2.358 uIU/ML (0.55-4.78); TOTAL PROTEIN 6.8 G/DL (5.7-8.2)
[2023-11-09] MEDS: NS 1,000 ML IV ONE ×2 (19:27→19:31)
[2023-11-09] MEDS: POTASSIUM CHLORIDE 10MEQ SR TABLET PO ONE (19:31)
[2023-11-09] MEDS: CALCIUM GLUCONATE 1,000 MG in D5W MINI-BAG PLUS 100 ML IV ONE (19:39)
[2023-11-09] MEDS: LIDOCAINE 2% 5ML JELLY UROJET TOP ONE (19:58)
[2023-11-09] MEDS: KCL 10MEQ/100ML SWI (KRUN) 10 MEQ in IV 1 EA IV ONE ×2 (20:54→22:02)
[2023-11-09 22:22] LABS: CK-MB VALUE MASS 2.2 NG/ML (<3.6)
[2023-11-09 22:29] LABS: MB/CK RELATIVE INDEX 0.97 (< OR =4)
[2023-11-10] MEDS ORDERED: MOM 30ML SUSPENSION UDC PO PRN (00:45)
[2023-11-10] MEDS: NS 1,000 ML IV ONE (00:54)
[2023-11-10] MEDS: cefTRIAXone SOD 1 GM in D5W MINI-BAG PLUS 50 ML IV ONE (00:54)
[2023-11-10] MEDS ORDERED: GLUCAGON INJ 1MG VIAL SC PRN (01:45)
[2023-11-10] MEDS ORDERED: GLUCOSE 4 GM CHEW PO PRN (01:45)
[2023-11-10] MEDS ORDERED: DEXTROSE 50% 50ML SYRINGE IV PRN (01:45)
[2023-11-10] MEDS: NS 1,000 ML IV SCH (02:00)
[2023-11-10 03:00] LABS: IONIZED CALCIUM 2.9 MG/DL (4.5-5.3)
[2023-11-10 03:48] LABS: ALBUMIN 2.7 G/DL (3.2-5.2); BILIRUBIN,TOTAL 1.3 MG/DL (0.3-1.2); CREATININE FOR GFR 1.82 MG/DL (0.55-1.30); GLOMERULAR FILTRATION RATE 27.9 (>32); MAGNESIUM LEVEL 0.5 MG/DL (1.8-2.4); POTASSIUM SERUM 4.4 MMOL/L (3.5-5.1); TOTAL PROTEIN 5.9 G/DL (5.7-8.2)
[2023-11-10] MEDS: CALCIUM CHLORIDE 10% 1 GM in D5W 100 ML IV ONE (04:01)
[2023-11-10] MEDS: MAG SULF 1GM/100ML (MAG RUN) 1 GM in IV 1 EA IV SCH ×2 (04:51→07:48)
[2023-11-10] MEDS: NORCO, ANEXSIA 5/325MG TABLET (HYDROcodone/ACETAMINOPHEN) PO ONE (04:58)
[2023-11-10] MEDS: ACETAMINOPHEN TAB 650MG DOSE (2X325MG) PO PRN (05:31)
[2023-11-10 07:00] LABS: BASO # 0.1 10^3/uL (0.0-0.2); BASO % 0.5 % (0.0-1.0); EOS # 0.2 10^3/uL (0.0-0.5); EOS % 1.3 % (0.0-3.0); HEMATOCRIT 32.1 % (36.0-47.0); HEMOGLOBIN 10.4 g/dl (12.0-15.5); LYMPH # 1.7 10^3/uL (1.5-5.0); LYMPH % 11.3 % (24.0-44.0); MEAN CORPUSCULAR HEMOGLOBIN 31.7 pg (27.0-33.0); MEAN CORPUSCULAR HGB CONC 32.4 g/dl (32.0-36.5); MEAN CORPUSCULAR VOLUME 97.9 fl (80.0-96.0); MONO # 0.8 10^3/uL (0.0-0.8); MONO % 5.5 % (2.0-8.0); NEUTROPHILS # 12.1 10^3/uL (1.5-8.5); NEUTROPHILS % 80.5 % (36.0-66.0); PLATELET COUNT, AUTOMATED 202 10^3/uL (150-450); RED BLOOD COUNT 3.28 10^6/uL (4.00-5.40)
[2023-11-10 07:21] LABS: ALBUMIN 2.6 G/DL (3.2-5.2); BILIRUBIN,TOTAL 1.3 MG/DL (0.3-1.2); CALCIUM LEVEL 6.3 MG/DL (8.3-10.6); CREATININE FOR GFR 1.65 MG/DL (0.55-1.30); GLOMERULAR FILTRATION RATE 31.3 (>32); MAGNESIUM LEVEL 1.2 MG/DL (1.8-2.4); POTASSIUM SERUM 3.4 MMOL/L (3.5-5.1); TOTAL PROTEIN 5.7 G/DL (5.7-8.2)
[2023-11-10] MEDS: INSULIN LISPRO (NovoLOG) PER UNIT SC SCH ×2 (07:27→21:00)
[2023-11-10 07:39] LABS: PHOSPHORUS LEVEL 3.8 MG/DL (2.4-5.1)
[2023-11-10 07:41] LABS: PTH INTACT 440.3 PG/ML (18.5-88.0)
[2023-11-10 07:42] LABS: TOTAL 25(OH) VITAMIN D 24.7 NG/ML (20.0-100.0)
[2023-11-10] MEDS ORDERED: ALBU8.5H INH (08:46)
[2023-11-10] MEDS ORDERED: METO25TA4 PO (08:46)
[2023-11-10] MEDS ORDERED: MEMA10TA PO (08:46)
[2023-11-10] MEDS ORDERED: ELIQ5TAB PO (08:46)
[2023-11-10] MEDS ORDERED: FURO20TA2 PO (08:47)
[2023-11-10] MEDS ORDERED: HOME MED LIST COMPLETE! XX SCH (08:55)
[2023-11-10] MEDS: APIXABAN 5 MG TAB (ELIQUIS) PO SCH (09:38)
[2023-11-10 11:31] LABS: IONIZED CALCIUM 3.4 MG/DL (4.5-5.3)
[2023-11-10] MEDS ORDERED: cefTRIAXone SOD 1 GM in D5W MINI-BAG PLUS 50 ML IV SCH (12:00)
[2023-11-10 12:02] LABS: CALCIUM LEVEL 6.3 MG/DL (8.3-10.6); CREATININE FOR GFR 1.5 MG/DL (0.55-1.30); GLOMERULAR FILTRATION RATE 34.9 (>32); MAGNESIUM LEVEL 2.8 MG/DL (1.8-2.4); POTASSIUM SERUM 2.8 MMOL/L (3.5-5.1)
[2023-11-10] MEDS: CALCITRIOL 0.25 MCG CAP (S0169) PO SCH (12:39)
[2023-11-10 15:03] VITALS: BP 122/77; TEMP 97.1; O2SAT 100
[2023-11-10] MEDS: POTASSIUM CHLORIDE 10MEQ SR TABLET PO ONE (15:25)
[2023-11-10] MEDS: KCL 10MEQ/100ML SWI (KRUN) 10 MEQ in IV 1 EA IV SCH (15:26)
[2023-11-10] MEDS: CALCIUM CARB SUSP 1250MG/5ML UNIT DOSE CUP PO SCH (16:49)
[2023-11-10 18:44] LABS: IONIZED CALCIUM 3.6 MG/DL (4.5-5.3)
[2023-11-10 19:00] VITALS: BP 109/59; TEMP 97.5; O2SAT 100
[2023-11-10 19:34] LABS: CALCIUM LEVEL 6.5 MG/DL (8.3-10.6); CREATININE FOR GFR 1.38 MG/DL (0.55-1.30); GLOMERULAR FILTRATION RATE 38.4 (>32); MAGNESIUM LEVEL 2.2 MG/DL (1.8-2.4); POTASSIUM SERUM 3.6 MMOL/L (3.5-5.1)
[2023-11-10] MEDS: cefTRIAXone SOD 1 GM in D5W MINI-BAG PLUS 50 ML IV SCH (21:09)
[2023-11-10 23:36] LABS: IONIZED CALCIUM 3.7 MG/DL (4.5-5.3)
[2023-11-10 23:58] VITALS: BP 112/70; TEMP 97; O2SAT 99
[2023-11-11 00:46] LABS: CALCIUM LEVEL 6.7 MG/DL (8.3-10.6); CREATININE FOR GFR 1.34 MG/DL (0.55-1.30); GLOMERULAR FILTRATION RATE 39.7 (>32)
[2023-11-11 03:47] VITALS: BP 118/53; TEMP 98; O2SAT 93
[2023-11-11 07:47] VITALS: BP 135/63; TEMP 96.7; O2SAT 100
[2023-11-11 07:50] LABS: BASO # 0.1 10^3/uL (0.0-0.2); BASO % 0.5 % (0.0-1.0); EOS # 0.4 10^3/uL (0.0-0.5); HEMATOCRIT 29.9 % (36.0-47.0); HEMOGLOBIN 9.5 g/dl (12.0-15.5); LYMPH # 1.5 10^3/uL (1.5-5.0); LYMPH % 14.3 % (24.0-44.0); MEAN CORPUSCULAR HEMOGLOBIN 31.4 pg (27.0-33.0); MEAN CORPUSCULAR HGB CONC 31.8 g/dl (32.0-36.5); MEAN CORPUSCULAR VOLUME 98.7 fl (80.0-96.0); MONO # 0.8 10^3/uL (0.0-0.8); MONO % 7.3 % (2.0-8.0); NEUTROPHILS # 7.6 10^3/uL (1.5-8.5); NEUTROPHILS % 72.7 % (36.0-66.0); PLATELET COUNT, AUTOMATED 194 10^3/uL (150-450); RED BLOOD COUNT 3.03 10^6/uL (4.00-5.40); WHITE BLOOD COUNT 10.4 10^3/uL (4.0-10.0)
[2023-11-11 08:14] LABS: CALCIUM LEVEL 7.1 MG/DL (8.3-10.6); CREATININE FOR GFR 1.13 MG/DL (0.55-1.30); GLOMERULAR FILTRATION RATE 48.4 (>32); MAGNESIUM LEVEL 1.9 MG/DL (1.8-2.4)
[2023-11-11 13:40] VITALS: BP 146/73; TEMP 98.3; O2SAT 95
[2023-11-11 14:10] VITALS: BP 131/73; TEMP 97.9; O2SAT 98
[2023-11-11 14:55] LABS: MONO REFLEX EBV VCA IgM NEGATIVE (NEGATIVE)
[2023-11-11 20:10] VITALS: BP 126/71; TEMP 97.5; O2SAT 98
[2023-11-12 03:50] VITALS: BP 134/90; TEMP 97.7; O2SAT 99
[2023-11-12 06:16] LABS: BASO # 0.1 10^3/uL (0.0-0.2); BASO % 0.6 % (0.0-1.0); EOS # 0.3 10^3/uL (0.0-0.5); EOS % 4.3 % (0.0-3.0); HEMATOCRIT 29.2 % (36.0-47.0); HEMOGLOBIN 9.3 g/dl (12.0-15.5); LYMPH # 1.4 10^3/uL (1.5-5.0); LYMPH % 17.9 % (24.0-44.0); MEAN CORPUSCULAR HEMOGLOBIN 31.7 pg (27.0-33.0); MEAN CORPUSCULAR HGB CONC 31.8 g/dl (32.0-36.5); MEAN CORPUSCULAR VOLUME 99.7 fl (80.0-96.0); MONO # 0.7 10^3/uL (0.0-0.8); MONO % 8.8 % (2.0-8.0); NEUTROPHILS # 5.2 10^3/uL (1.5-8.5); PLATELET COUNT, AUTOMATED 212 10^3/uL (150-450); RED BLOOD COUNT 2.93 10^6/uL (4.00-5.40); WHITE BLOOD COUNT 7.7 10^3/uL (4.0-10.0)
[2023-11-12 06:55] LABS: CALCIUM LEVEL 8.1 MG/DL (8.3-10.6); CREATININE FOR GFR 1.11 MG/DL (0.55-1.30); GLOMERULAR FILTRATION RATE 49.4 (>32); MAGNESIUM LEVEL 1.4 MG/DL (1.8-2.4); PHOSPHORUS LEVEL 2.5 MG/DL (2.4-5.1); POTASSIUM SERUM 3.8 MMOL/L (3.5-5.1)
[2023-11-12] MEDS: MAG SULF 1GM/100ML (MAG RUN) 1 GM in IV 1 EA IV SCH (08:00)
[2023-11-12 12:00] VITALS: BP 102/67; TEMP 97.5; O2SAT 98
[2023-11-12 20:00] VITALS: BP 104/71; TEMP 97.9; O2SAT 96
[2023-11-13 04:00] VITALS: BP 133/79; TEMP 97.5; O2SAT 97
[2023-11-13 06:30] LABS: BLOOD UREA NITROGEN 12 MG/DL (9-23); CALCIUM LEVEL 8.8 MG/DL (8.3-10.6); CARBON DIOXIDE LEVEL 27 MMOL/L (20-31); CHLORIDE LEVEL 108 MMOL/L (98-107); CREATININE FOR GFR 0.92 MG/DL (0.55-1.30); GLOMERULAR FILTRATION RATE > 60.0 (>32); GLUCOSE, FASTING 122 MG/DL (74-106); MAGNESIUM LEVEL 1.4 MG/DL (1.8-2.4); POTASSIUM SERUM 4.1 MMOL/L (3.5-5.1); SODIUM LEVEL 141 MMOL/L (136-145)
[2023-11-13] MEDS: LevoFLOXacin 750 MG TABLET PO SCH (07:00)
[2023-11-13] MEDS: MAG SULF 1GM/100ML (MAG RUN) 1 GM in IV 1 EA IV SCH (09:34)
[2023-11-13] MEDS: LACTOBACILLUS ACIDOPHILUS CAP (BACID) PO SCH (09:52)
[2023-11-13] MEDS: MAGNESIUM OXIDE 400MG TAB (MAG-OX) PO SCH (09:52)
[2023-11-13] MEDS: METOPROLOL TART 25 MG TABLET PO ONE (09:55)
[2023-11-13] MEDS: CALCIUM CARB SUSP 1250MG/5ML UNIT DOSE CUP PO SCH (09:55)
[2023-11-13 12:00] VITALS: BP 124/75; TEMP 97.3; O2SAT 99
[2023-11-13 19:50] VITALS: BP 121/68; TEMP 97.2; O2SAT 100
[2023-11-13] MEDS: METOPROLOL TART 25 MG TABLET PO SCH (20:44)
[2023-11-13 21:07] LABS: EBV VIRAL CAPSID AG IgMZ <36.0 U/mL (0.0-35.9); MUMPS VIRUS IgM ANTIBODY <0.80 AU (0.00-0.79)
[2023-11-14 04:00] VITALS: BP 132/77; TEMP 97.2; O2SAT 99
[2023-11-14 07:03] LABS: CALCIUM LEVEL 9.1 MG/DL (8.3-10.6); CREATININE FOR GFR 0.95 MG/DL (0.55-1.30); GLOMERULAR FILTRATION RATE 59.1 (>32); MAGNESIUM LEVEL 1.6 MG/DL (1.8-2.4); POTASSIUM SERUM 4.4 MMOL/L (3.5-5.1)
[2023-11-14 12:00] VITALS: BP 127/72; TEMP 97; O2SAT 99
[2023-11-14] MEDS: MAG SULF 1GM/100ML (MAG RUN) 1 GM in IV 1 EA IV SCH (16:00)
[2023-11-14 19:46] VITALS: BP 124/63; TEMP 97; O2SAT 99
[2023-11-15 04:00] VITALS: BP 110/60; TEMP 97.2; O2SAT 99
[2023-11-15 07:21] LABS: CREATININE FOR GFR 1.04 MG/DL (0.55-1.30); GLOMERULAR FILTRATION RATE 53.2 (>32); MAGNESIUM LEVEL 1.8 MG/DL (1.8-2.4); POTASSIUM SERUM 4.4 MMOL/L (3.5-5.1)
[2023-11-15] MEDS: CALCIUM CARB SUSP 1250MG/5ML UNIT DOSE CUP PO SCH (09:05)
[2023-11-15] MEDS: SENOKOT S TAB PO SCH (09:07)
[2023-11-15 12:00] VITALS: BP 124/64; TEMP 97.7; O2SAT 99
[2023-11-15] MEDS: PANTOPRAZOLE 40MG TAB (PROTONIX) PO ONE (17:43)
[2023-11-15 19:26] VITALS: BP 123/63; TEMP 97.5; O2SAT 99
[2023-11-16 03:30] VITALS: BP 136/75; TEMP 97.7; O2SAT 100
[2023-11-16 06:15] LABS: CREATININE FOR GFR 1.04 MG/DL (0.55-1.30); GLOMERULAR FILTRATION RATE 53.2 (>32); MAGNESIUM LEVEL 1.5 MG/DL (1.8-2.4); POTASSIUM SERUM 4.5 MMOL/L (3.5-5.1)
[2023-11-16] MEDS: MAG SULF 1GM/100ML (MAG RUN) 1 GM in IV 1 EA IV SCH (08:23)
[2023-11-16] MEDS: PANTOPRAZOLE 40MG TAB (PROTONIX) PO SCH (08:24)
[2023-11-16 08:27] VITALS: BP 121/64
[2023-11-16 12:00] VITALS: BP 120/66; TEMP 97.2; O2SAT 97
[2023-11-16] MEDS ORDERED: [UNRECOGNIZED DRUG - CODE] PO (12:21)
[2023-11-16] MEDS ORDERED: MAGN400T2 PO (12:21)
[2023-11-16] MEDS ORDERED: CALC1CAP31 PO (12:21)
== END 2023-11-16 14:25 | disposition home health service (06) | DRG 644 ==
LOC: M ED 12:43 → M ED INP 11-10 00:43 → M PCU 11-10 15:00 → M MSPAV 11-11 14:04
PROVIDERS: ADMIT Internal Medicine; ATTEND Student in an Organized Health Care Education/Training Program
DX: E21.1 Secondary hyperparathyroidism, not elsewhere classified (principal); N39.0 Urinary tract infection, site not specified; N17.9 Acute kidney failure, unspecified; K90.9 Intestinal malabsorption, unspecified; I12.9 Hypertensive chronic kidney disease with stage 1 through stage 4 chronic kidney disease, or unspecified chronic kidney disease; E78.5 Hyperlipidemia, unspecified; E11.22 Type 2 diabetes mellitus with diabetic chronic kidney disease; J45.909 Unspecified asthma, uncomplicated; K21.9 Gastro-esophageal reflux disease without esophagitis; K44.9 Diaphragmatic hernia without obstruction or gangrene; F41.9 Anxiety disorder, unspecified; N18.30 Chronic kidney disease, stage 3 unspecified; K57.90 Diverticulosis of intestine, part unspecified, without perforation or abscess without bleeding; I71.40 Abdominal aortic aneurysm, without rupture, unspecified; R19.7 Diarrhea, unspecified; E87.6 Hypokalemia; E83.42 Hypomagnesemia; R54 Age-related physical debility; K52.9 Noninfective gastroenteritis and colitis, unspecified; K11.21 Acute sialoadenitis; Z98.41 Cataract extraction status, right eye; Z98.42 Cataract extraction status, left eye; Z90.49 Acquired absence of other specified parts of digestive tract; Z87.891 Personal history of nicotine dependence; Z79.01 Long term (current) use of anticoagulants; Z79.84 Long term (current) use of oral hypoglycemic drugs; Z79.899 Other long term (current) drug therapy

== ENCOUNTER → 2023-12-04 | Outpatient (CLI) | payer MEDICARE ==
[~2023-12-04] MED LIST changes: +ALBU8.5H INH; +CALC1CAP31 PO; +FURO20TA2 PO; +MEMA10TA PO; +METO25TA4 PO; +[UNRECOGNIZED DRUG - CODE] PO
[2023-12-04 19:01] LABS: HEMATOCRIT 30.3 % (36.0-47.0); HEMOGLOBIN 9.4 g/dl (12.0-15.5); MEAN CORPUSCULAR HEMOGLOBIN 32.4 pg (27.0-33.0); MEAN CORPUSCULAR VOLUME 104.5 fl (80.0-96.0); PLATELET COUNT, AUTOMATED 307 10^3/uL (150-450); WHITE BLOOD COUNT 8.5 10^3/uL (4.0-10.0)
[2023-12-04 19:04] LABS: ALBUMIN 3.4 G/DL (3.2-5.2); BILIRUBIN,TOTAL 0.5 MG/DL (0.3-1.2); CALCIUM LEVEL 9.6 MG/DL (8.3-10.6); CHOLESTEROL RISK RATIO 3.16 (<5); CREATININE FOR GFR 1.01 MG/DL (0.55-1.30); GLOMERULAR FILTRATION RATE 55.1 (>32); HDL CHOLESTEROL 47.7 MG/DL (>40); LDL CHOLESTEROL 71.1 MG/DL (<100); NON-HDL-C 103.3 MG/DL
[2023-12-04 19:05] LABS: THYROID STIMULATING HORMONE 2.031 uIU/ML (0.55-4.78)
[2023-12-04 19:26] LABS: HEMOGLOBIN A1c 5.2 % (4.0-6.0)
== END ==
LOC: M LAB 15:43 → M PLALAB 15:43
PROVIDERS: ATTEND Family Medicine
DX: I10 Essential (primary) hypertension (principal); E11.9 Type 2 diabetes mellitus without complications; R53.83 Other fatigue

== ENCOUNTER 2024-07-20 11:51 | Emergency (ER) | payer MEDICARE, MEDICAID ==
[2024-07-20 12:39] LABS: BASO # 0.1 10^3/uL (0.0-0.2); BASO % 0.7 % (0.0-1.0); EOS % 10.3 % (0.0-3.0); HEMATOCRIT 31.9 % (36.0-47.0); LYMPH # 2.4 10^3/uL (1.5-5.0); LYMPH % 25.2 % (24.0-44.0); MEAN CORPUSCULAR HEMOGLOBIN 30.5 pg (27.0-33.0); MEAN CORPUSCULAR HGB CONC 31.3 g/dl (32.0-36.5); MEAN CORPUSCULAR VOLUME 97.3 fl (80.0-96.0); MONO # 0.7 10^3/uL (0.0-0.8); MONO % 7.7 % (2.0-8.0); NEUTROPHILS # 5.3 10^3/uL (1.5-8.5); NEUTROPHILS % 55.6 % (36.0-66.0); PLATELET COUNT, AUTOMATED 213 10^3/uL (150-450); RED BLOOD COUNT 3.28 10^6/uL (4.00-5.40); WHITE BLOOD COUNT 9.5 10^3/uL (4.0-10.0)
[2024-07-20 12:51] LABS: INR 1.39; PARTIAL THROMBOPLASTIN TIME 27.7 SECONDS (24.8-34.2); PROTHROMBIN TIME 17.3 SECONDS (12.5-14.5)
[2024-07-20 13:08] LABS: ALBUMIN 3.1 G/DL (3.2-5.2); BILIRUBIN,DIRECT 0.3 MG/DL (<0.4); BILIRUBIN,TOTAL 0.9 MG/DL (0.3-1.2); CALCIUM LEVEL 8.8 MG/DL (8.3-10.6); CREATININE FOR GFR 1.63 MG/DL (0.55-1.30); POTASSIUM SERUM 3.8 MMOL/L (3.5-5.1); TOTAL PROTEIN 6.8 G/DL (5.7-8.2)
[2024-07-20] MEDS ORDERED: ISOVUE-370 76% 100ML VIAL As Ordered ONE (13:21)
[2024-07-20] MEDS: NS (Normal Saline) 0.9% 1,000 ML IV SCH (15:25)
[2024-07-20 16:15] VITALS: BP 153/70; TEMP 97.8; O2SAT 100
[2024-07-20 16:27] LABS: RSV AMPLIFICATION NEGATIVE (NEGATIVE)
== END 2024-07-20 16:22 | disposition short-term general hospital (02) ==
LOC: M ED 11:51 → EDBD 11:51 → M ED 16:22
DX: T82.330A Leakage of aortic (bifurcation) graft (replacement), initial encounter (principal); I71.43 Infrarenal abdominal aortic aneurysm, without rupture; I48.91 Unspecified atrial fibrillation; I11.0 Hypertensive heart disease with heart failure; I50.9 Heart failure, unspecified; F03.90 Unspecified dementia, unspecified severity, without behavioral disturbance, psychotic disturbance, mood disturbance, and anxiety; M50.322 Other cervical disc degeneration at C5-C6 level; K44.9 Diaphragmatic hernia without obstruction or gangrene; W19.XXXA Unspecified fall, initial encounter; Y92.009 Unspecified place in unspecified non-institutional (private) residence as the place of occurrence of the external cause; Y93.89 Activity, other specified; Y99.9 Unspecified external cause status; M43.06 Spondylolysis, lumbar region; M43.04 Spondylolysis, thoracic region; M19.011 Primary osteoarthritis, right shoulder; M19.012 Primary osteoarthritis, left shoulder; M16.0 Bilateral primary osteoarthritis of hip; Z79.01 Long term (current) use of anticoagulants; Z79.899 Other long term (current) drug therapy
CPT/HCPCS: 36415; 70450; 71260; 72125; 72128; 72131; 73030; 73502; 73552; 73564; 73590; 74177; 80048; 80076; 85025; 85610; 85730; 86850; 86900; 86901; 87631; 93041; 94760; 99285; G0390; Q9967